=== PATIENT | male | born 1930 | race Caucasian/White ===

== ENCOUNTER 2016-10-01 10:57 | Inpatient (IN) ==
[2016-10-01] MEDS ORDERED: 0.9 % Sodium Chloride 1,000 ML IVC ONE (10:59)
--- NOTE | 2016-10-01 11:02 | Emergency Department Note ---
Disposition Clinical Impression: Acute retention of urine, Sepsis syndrome Urinary tract infection Qualifiers: Urinary tract infection type: acute cystitis Hematuria presence: without hematuria Qualified Code(s): N30.00 - Acute cystitis without hematuria Altered mental status Qualifiers: Altered mental status type: disorientation Qualified Code(s): R41.0 - Disorientation, unspecified Abdominal pain Qualifiers: Abdominal location: lower abdomen, unspecified Qualified Code(s): R10.30 - Lower abdominal pain, unspecified Disposition: Admitted As Inpatient Condition: Fair Referrals: Karlene Lino, SENIOR BI ARCHITECT [Primary Care Provider] - Forms: ED Satisfaction Letter General Adult HPI - General Chief complaint: ED Urogenital-Male Stated complaint: fever,vomiting, uti Time Seen by Provider: 10/01/16 10:59 Source: patient, family, EMS Mode of arrival: EMS Limitations: altered mental status Nursing Notes Reviewed: Yes Vital Signs Reviewed: Yes - History of Present Illness HPI Narrative: Patient has reportedly had about a week of "peeing green". He did see his urologist in [place] on Monday that Karlene Lino on . He was just started on Macrodantin for a UTI. Patient is able to indicate that he has been "feeling bad" for 2-3 days. This morning he has had some nausea and vomiting this productive of yellow bile. He denies abdominal pain this family reported that he had some mid abdominal discomfort. He has not been having diarrhea or bloody or black stools. He denies chest pain or shortness of breath. He denied other systemic complaints. He ultimately has refused to answer any further questions. His family reports that he had the urinary symptoms and the physician appointments. They also state that he had complained of having chills and shakes all night. They noted that he seemed to be a little confused at this morning. His daughter called the squad to have him brought in for evaluation. Onset (ago): day(s) Location: abdomen Radiation: non-radiation Pain Severity: mild, moderate Consistency: intermittent Improves with: nothing Worsens with: nothing Associated symptoms: Reports: confusion, fever/chills, loss of appetite, malaise , nausea/vomiting, weakness. Denies: chest pain, cough, diaphoresis, headaches , rash, seizure, shortness of breath, syncope - Related Data Home Medications Medication Instructions Recorded Confirmed Glimepiride [Amaryl] 2 mg PO DAILY 10/16/15 10/01/16 Leuprolide Acetate [Lupron Depot] 3.75 mg IM Q6M 10/16/15 10/01/16 Metoprolol XL (24 HR) Succ [Toprol 25 mg PO DAILY 10/16/15 10/01/16 Xl] Multivit-Min/FA/Lycopen/Lutein 1 each PO DAILY 10/16/15 10/01/16 [Centrum Silver Tablet] Olmesartan Medoxomil [Benicar] 20 mg PO DAILY 10/16/15 10/01/16 Solifenacin Succinate [Vesicare] 10 mg PO DAILY 10/16/15 10/01/16 Venlafaxine HCl [Effexor Xr] 75 mg PO DAILY 10/16/15 10/01/16 Abiraterone Acetate [Zytiga] 1,000 mg PO DAILY 01/30/16 10/01/16 predniSONE [Prednisone] 5 mg PO BID 01/30/16 10/01/16 Calcium Carbonate [Calcium] 500 mg PO BID 02/15/16 10/01/16 Denosumab [Prolia (For Outpatient 1 10/01/16 Infusion)] Previous Rx's Medication Instructions Recorded Apixaban [Eliquis] 5 mg PO BID #60 tablet 02/01/16 Cephalexin [Keflex] 500 mg PO TID #30 capsule 08/30/16 Phenazopyridine HCl [Pyridium] 200 mg PO TIDAC #6 tab 08/30/16 Allergies Allergy/AdvReac Type Severity Reaction Status Date / Time Sulfa (Sulfonamide Allergy See Verified 10/01/16 10:59 Antibiotics) Comments tamsulosin [From Flomax] AdvReac See Verified 10/01/16 10:59 Comments All systems ED: reviewed and negative except as stated. Past Medical History - Past Medical History Attestation: Yes The following information was validated with the patient. Source: patient, old records reviewed, obtained from family, nursing notes reviewed Medical history: Reports: other (BPH, Prostate cancer) Surgical history: Reports: cataract, hip replacement (Right), orthopedic, other Psychiatric history: Reports: anxiety, depression - Social History Smoking Status: Never smoker Smokeless Tobacco Status: No Alcohol use: Reports: none Drug use: Reports: none Physical Exam - General Limitations: altered mental status, age General appearance: in no apparent distress - Head Head exam: atraumatic, normocephalic, normal inspection - Eye Eye exam: Present: normal appearance, PERRL, EOMI. Absent: scleral icterus, conjunctival injection - ENT ENT exam: normal exam, normal oropharynx, mucous membranes moist - Neck Neck exam: Present: normal inspection, full ROM, trachea midline. Absent: meningismus, lymphadenopathy - Chest Chest inspection: Present: normal inspection, symmetric chest wall rise. Absent : tenderness - Respiratory Respiratory exam: Present: normal lung sounds bilaterally. Absent: respiratory distress, wheezes, prolonged expiratory phase - Cardiovascular Cardiovascular exam: Present: regular rate, normal rhythm, normal heart sounds - Abdominal Exam Abdominal exam: Present: soft, tenderness, diminished bowel sounds. Absent: distention, guarding, rebound, rigidity Abdominal tenderness: Present: RLQ, LLQ, suprapubic, mild - Extremities Exam Extremities exam: Present: normal inspection, full ROM, normal capillary refill. Absent: tenderness, pedal edema - Expanded Lower Extremity Exam Neurovascular/Tendon exam: Present: normal capillary refill. Absent: motor deficit, sensory deficit, tendon deficit Gait: not tested/not observed - Neurological Exam Neurological exam: Present: alert. Absent: oriented X3, motor sensory deficit - Psychiatric Psychiatric exam: Present: flat affect, other (Passive-aggressive) - Skin Skin exam: Present: warm, dry, intact, normal color Course Course Narrative: 1200: With the return of lab and imaging, care has been discussed with the family. Given the bladder distention of Sorto catheter has been placed with [address] Arce has been contacted with the ongoing care of this patient inpatient. IV fluids have been continued and ciprofloxacin has been ordered IV. Vital Signs Temperature 100.7 F H 10/01/16 10:59 Pulse Rate 96 10/01/16 10:59 Respiratory Rate 29 10/01/16 10:59 Blood Pressure 160/68 10/01/16 10:59 O2 Sat by Pulse Oximetry 92 10/01/16 10:59 Temperature 98.1 F 10/01/16 12:46 Pulse Rate 79 10/01/16 12:46 Respiratory Rate 21 10/01/16 12:46 Blood Pressure 140/55 10/01/16 12:46 O2 Sat by Pulse Oximetry 98 10/01/16 12:46 Oxygen Delivery Oxygen Delivery Nasal Cannula Medical Decision Making - Medical Records Medical records reviewed: Yes I reviewed the patient's medical records. - Lab Data Lab results reviewed: Yes I reviewed the patient's lab results. Result diagrams: 10/01/16 11:15 10/01/16 11:15 Lab Results 10/01/16 10/01/16 10/01/16 Range/Units 11:15 11:15 11:15 WBC 4.7 (4.3-11.1) K/mcL RBC 3.18 L (4.19-5.50) M/mcL Hgb 9.5 L (12.9-16.9) g/dL Hct 29.4 L (37.5-50.1) % MCV 92.5 (83.0-100.0) fL MCH 29.9 (28.0-33.3) pg MCHC 32.3 (31.6-35.5) g/dL RDW 14.7 H (11.5-14.5) % Plt Count 146 (140-400) K/mcL MPV 10.0 (9.4-12.4) fL Immature Gran % 0.2 (0-4) % Seg Neutrophils % 89.5 % Lymphocytes % 9.3 % Monocytes % 0.6 % Eosinophils % 0.2 % Basophils % 0.2 % Neutrophils # 4.2 (1.6-8.9) K/mcL Lymphocytes # 0.4 L (0.6-4.6) K/mcL Monocytes # 0.0 (0.0-1.3) K/mcL Eosinophils # 0.0 (0.0-0.6) K/mcL Basophils # 0.0 (0.0-0.2) K/mcL PT 15.7 H (9.4-12.1) Seconds INR 1.4 APTT 27.6 (26.0-36.0) Seconds VBG Lactic Acid (0.5-2.2) mmol/L Sodium 143 (136-145) mEq/L Potassium 3.0 L (3.5-4.5) mEq/L Chloride 109 (98-109) mEq/L Carbon Dioxide 22 (19-29) mEq/L BUN 11 (8-26) mg/dL Creatinine 0.90 (0.72-1.25) mg/dL Est GFR ( Amer) > 60 (> 60) Est GFR (Non-Af Amer) > 60 (> 60) BUN/Creatinine Ratio 12 (6-26) Glucose 150 H (70-99) mg/dL Calculated Osmolality 298 (280-300) Calcium 8.1 L (8.6-10.8) mg/dL Phosphorus 1.3 L (2.3-4.7) mg/dL Magnesium 2.1 (1.6-2.6) mg/dL Total Bilirubin 0.7 (0.2-1.2) mg/dL Direct Bilirubin 0.3 (0.0-0.5) mg/dL Indirect Bilirubin 0.4 (0.0-1.2) mg/dL AST 13 (5-34) Units/L ALT 11 (0-55) Units/L Alkaline Phosphatase 57 (38-126) Units/L Troponin I (0-0.03) ng/mL Serum Total Protein 6.3 (6.0-8.3) g/dL Albumin 3.1 L (3.5-5.0) g/dL Globulin 3.2 (2.4-3.5) g/dL Albumin/Globulin Ratio 1.0 L (1.1-2.2) Urine Color (Yellow) Urine Clarity (Clear) Urine pH (5.0-8.0) pH Units Ur Specific [place] (1.010-1.025) Urine Protein (Neg-Trace) mg/dL Urine Glucose (UA) (Normal) mg/dL Urine Ketones (Negative) mg/dL Urine Blood (Negative) Urine Nitrite (Negative) Urine Bilirubin (Negative) Urine Urobilinogen (Normal) mg/dL Ur Leukocyte Esterase (Negative) Urine Microscopic RBC (0-3) per hpf Urine Microscopic WBC (0-3) per hpf Ur Squamous Epith Cells (None-Few) per lpf Urine Bacteria (None-Few) per hpf Ur Culture Indicated? (NO) 10/01/16 10/01/16 10/01/16 Range/Units 11:15 11:15 12:20 WBC (4.3-11.1) K/mcL RBC (4.19-5.50) M/mcL Hgb (12.9-16.9) g/dL Hct (37.5-50.1) % MCV (83.0-100.0) fL MCH (28.0-33.3) pg MCHC (31.6-35.5) g/dL RDW (11.5-14.5) % Plt Count (140-400) K/mcL MPV (9.4-12.4) fL Immature Gran % (0-4) % Seg Neutrophils % % Lymphocytes % % Monocytes % % Eosinophils % % Basophils % % Neutrophils # (1.6-8.9) K/mcL Lymphocytes # (0.6-4.6) K/mcL Monocytes # (0.0-1.3) K/mcL Eosinophils # (0.0-0.6) K/mcL Basophils # (0.0-0.2) K/mcL PT (9.4-12.1) Seconds INR APTT (26.0-36.0) Seconds VBG Lactic Acid 3.5 H (0.5-2.2) mmol/L Sodium (136-145) mEq/L Potassium (3.5-4.5) mEq/L Chloride (98-109) mEq/L Carbon Dioxide (19-29) mEq/L BUN (8-26) mg/dL Creatinine (0.72-1.25) mg/dL Est GFR ( Amer) (> 60) Est GFR (Non-Af Amer) (> 60) BUN/Creatinine Ratio (6-26) Glucose (70-99) mg/dL Calculated Osmolality (280-300) Calcium (8.6-10.8) mg/dL Phosphorus (2.3-4.7) mg/dL Magnesium (1.6-2.6) mg/dL Total Bilirubin (0.2-1.2) mg/dL Direct Bilirubin (0.0-0.5) mg/dL Indirect Bilirubin (0.0-1.2) mg/dL AST (5-34) Units/L ALT (0-55) Units/L Alkaline Phosphatase (38-126) Units/L Troponin I 0.03 (0-0.03) ng/mL Serum Total Protein (6.0-8.3) g/dL Albumin (3.5-5.0) g/dL Globulin (2.4-3.5) g/dL Albumin/Globulin Ratio (1.1-2.2) Urine Color Yellow (Yellow) Urine Clarity Slightly Cloudy A (Clear) Urine pH 7.0 (5.0-8.0) pH Units Ur Specific [place] 1.015 (1.010-1.025) Urine Protein Negative (Neg-Trace) mg/dL Urine Glucose (UA) Normal (Normal) mg/dL Urine Ketones Negative (Negative) mg/dL Urine Blood Trace-intact H (Negative) Urine Nitrite Negative (Negative) Urine Bilirubin Negative (Negative) Urine Urobilinogen Normal (Normal) mg/dL Ur Leukocyte Esterase Large H (Negative) Urine Microscopic RBC 3-5 H (0-3) per hpf Urine Microscopic WBC TNTC H (0-3) per hpf Ur Squamous Epith Cells None Seen (None-Few) per lpf Urine Bacteria Few (None-Few) per hpf Ur Culture Indicated? YES A (NO) - Radiology Data Radiology results reviewed: Yes I reviewed the patient's radiology results. CT head is performed. This is reviewed on bone and soft tissue windows. There is no evidence for acute intracranial bleed, shift, mass or edema. Mastoids and sinuses appear normal. There is no fracture evident. This is on my interpretation. CT is performed of the abdomen and pelvis without IV or oral contrast. This is unremarkable with exception of a distended bladder. This is on my interpretation. No other acute abnormality is seen. Impressions Abdomen/Pelvis CT 10/01/16 11:01 IMPRESSION: No acute abnormality in the abdomen or pelvis on the noncontrast CT. D/ / Tank Olivarez MD / Tank Olivarez MD Interpreting Provider: Tank Olivarez MD Head CT 10/01/16 11:01 IMPRESSION: No acute intracranial abnormality. Senescent changes with diffuse parenchymal volume loss and sequela of mild chronic microvascular ischemic changes. D/ / Dorene Jean MD / Dorene Jean MD Interpreting Provider: Dorene Jean MD - EKG Data EKG #1 EKG attestation: Yes I reviewed and interpreted this EKG. EKG shows normal: sinus rhythm, axis, intervals, ST-T waves [place]/QRS: RBBB Interpretation: no acute changes, nonspecific ST-T wave changes Critical Care Time Critical Care Time: Yes Total Critical Care Time: 45 Attestation: As this patient did present with signs and symptoms of potential life- threatening illness requiring my urgent intervention, total critical care time in this patient's care has been 45 minutes, not withstanding separately reportable procedures.
[2016-10-01 11:32] LABS: Basophils % 0.2 %; Eosinophils % 0.2 %; Hematocrit 29.4 % (37.5-50.1); Hemoglobin 9.5 g/dL (12.9-16.9); Immature Granulocytes % 0.2 % (0-4); Lymphocytes # 0.4 K/mcL (0.6-4.6); Lymphocytes % 9.3 %; Mean Corpuscular HGB Conc 32.3 g/dL (31.6-35.5); Mean Corpuscular Hemoglobin 29.9 pg (28.0-33.3); Mean Corpuscular Volume 92.5 fL (83.0-100.0); Monocytes % 0.6 %; Neutrophils # 4.2 K/mcL (1.6-8.9); Platelet Count 146 K/mcL (140-400); Red Blood Count 3.18 M/mcL (4.19-5.50); Red Cell Distribution Width 14.7 % (11.5-14.5); Segmented Neutrophils % 89.5 %
[2016-10-01 11:37] LABS: INR 1.4; Prothrombin Time 15.7 Seconds (9.4-12.1)
[2016-10-01 11:40] LABS: Activated Partial Thrombo Time 27.6 Seconds (26.0-36.0)
[2016-10-01 11:50] LABS: Alanine Aminotransferase 11 Units/L (0-55); Albumin 3.1 g/dL (3.5-5.0); Alkaline Phosphatase 57 Units/L (38-126); Aspartate Amino Transferase 13 Units/L (5-34); BUN/Creatinine Ratio 12 (6-26); Bilirubin,Direct 0.3 mg/dL (0.0-0.5); Bilirubin,Indirect 0.4 mg/dL (0.0-1.2); Bilirubin,Total 0.7 mg/dL (0.2-1.2); Blood Urea Nitrogen 11 mg/dL (8-26); Calcium 8.1 mg/dL (8.6-10.8); Carbon Dioxide 22 mEq/L (19-29); Chloride 109 mEq/L (98-109); Globulin 3.2 g/dL (2.4-3.5); Glucose 150 mg/dL (70-99); Magnesium 2.1 mg/dL (1.6-2.6); Osmolality,Calculated 298 (280-300); Phosphorous 1.3 mg/dL (2.3-4.7); Sodium 143 mEq/L (136-145); Total Protein 6.3 g/dL (6.0-8.3); eGFR For African Americans > 60 (> 60); eGFR For Non-African Americans > 60 (> 60)
[2016-10-01 12:32] LABS: Bilirubin,Urine Negative (Negative); Blood,Urine Trace-intact (Negative); Clarity,Urine Slightly Cloudy (Clear); Color,Urine Yellow (Yellow); Glucose,Urine (UA) Normal (Normal); Ketones,Urine Negative (Negative); Leukocyte Esterase,Urine Large (Negative); Nitrite,Urine Negative (Negative); Protein,Urine Negative (Neg-Trace); Specific Gravity,Urine 1.015 (1.010-1.025); Urobilinogen,Urine Normal (Normal)
[2016-10-01 12:37] LABS: Squamous Epithelial Cell,Urine None Seen per lpf (None-Few); WBC,Urine TNTC per hpf (0-3)
[2016-10-01 12:38] LABS: Bacteria,Urine Few per hpf (None-Few)
[2016-10-01] MEDS ORDERED: Ondansetron 4 MG/2 ML VIAL IVP ONE (13:43)
[2016-10-01] MEDS ORDERED: MOM Conc 10 ML UD.LIQ PO PRN (15:45)
[2016-10-01] MEDS ORDERED: Naloxone 0.4 MG/ML INJ IVP PRN (15:45)
[2016-10-01] MEDS ORDERED: 0.9 % Sodium Chloride 1,000 ML IVC SCH (15:45)
--- NOTE | 2016-10-01 18:49 | Internal Med History&Physical ---
Date of Encounter: 10/01/16 Time of Encounter: 18:15 Assessment and Plan (1) Urinary tract infection Current visit: Yes Status: Acute He was ordered Cipro through emergency room. I will add Rocephin with urine culture pending. Qualifiers: Urinary tract infection type: acute cystitis Hematuria presence: without hematuria Qualified Code(s): N30.00 - Acute cystitis without hematuria (2) Hypokalemia Current visit: Yes Status: Acute We will give supplemental potassium and recheck labs in a.m. (3) Hypophosphatemia Current visit: Yes Status: Acute We will give phosphorus replacement and recheck labs in a.m. (4) Anemia Current visit: Yes Status: Chronic Suspect multifactorial etiology including hormonal therapy for prostate cancer and use of Eliqus. We will check anemia testing in a.m. Qualifiers: Anemia type: unspecified type Qualified Code(s): D64.9 - Anemia, unspecified (5) Pulmonary embolus Current visit: No Status: Acute Continue Eliquis Qualifiers: Pulmonary embolism type: other Chronicity: acute Acute cor pulmonale presence: without acute cor pulmonale Qualified Code(s): I26.99 - Other pulmonary embolism without acute cor pulmonale (6) Diabetes mellitus Current visit: No Status: Chronic Hemoglobin A1c was 6.2% on 06/13/2016. We will recheck in a.m. Continue glimepiride and do Accu-Cheks with SSI. 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 Will hold [facility] Internal Medicine - H&P: HPI Chief complaint: Chills and vomiting Admitted From: Home Plans for Post Hospital Care: Home History of present illness: Mr. Nix is a 86 year old male who came to emergency room after experiencing chills and went to episodes of vomiting at home. He stated he did not feel well. He is evaluated emergency room and found to have evidence of UTI. He was admitted to [facility] floor for ongoing care needs. He is lethargic and unable to give additional history. His daughter supplies the history and states he was given Macrobid 09/29/2016 for UTI symptoms. No culture was obtained. His history is pertinent otherwise for prostate cancer which was diagnosed approximately 2009. He was treated medically with hormone therapy and PSA is being monitored by urologist in [place]. He has past history of BPH and underwent TUR. He was found to have urinary retention in emergency room and a catheter was placed. He has had a kidney stone in the remote past. Past Med Surg Social Fam HX - Past Medical History Medical history: cancer, other Psychiatric history: anxiety, depression - Past Surgical History Surgical History: cataract, hip replacement, orthopedic, other - Social History Smoking Status: Never smoker Smokeless Tobacco Status: No Alcohol use: none Drug use: none - Family History Father Living Status: Hx Family Cardiac Disorders: No Hx Family Respiratory Disorders: No Hx Family Cancer: Yes Hx Family GI Disorders: No Hx Family Endocrine Disorder: Yes Hx Family Neuromuscular Disorders: No Hx Family Neurologic Disorders: No Hx Family HEENT Disorders: No Hx Family Autoimmune Disorders: No Internal Medicine - H&P: Meds Glimepiride [Amaryl] 2 mg PO DAILY 10/16/15 [History] Leuprolide Acetate [Lupron Depot] 3.75 mg IM Q6M 10/16/15 [History] Metoprolol XL (24 HR) Succ [Toprol Xl] 25 mg PO DAILY 10/16/15 [History] Multivit-Min/FA/Lycopen/Lutein [Centrum Silver Tablet] 1 each PO DAILY 10/16/15 [History] Olmesartan Medoxomil [Benicar] 20 mg PO DAILY 10/16/15 [History] Solifenacin Succinate [Vesicare] 10 mg PO DAILY 10/16/15 [History] Venlafaxine HCl [Effexor Xr] 75 mg PO DAILY 10/16/15 [History] Abiraterone Acetate [Zytiga] 1,000 mg PO DAILY 01/30/16 [History] predniSONE [Prednisone] 5 mg PO BID 01/30/16 [History] Apixaban [Eliquis] 5 mg PO BID #60 tablet 02/01/16 [Rx] Calcium Carbonate [Calcium] 500 mg PO BID 02/15/16 [History] Cephalexin [Keflex] 500 mg PO TID #30 capsule 08/30/16 [Rx] Phenazopyridine HCl [Pyridium] 200 mg PO TIDAC #6 tab 08/30/16 [Rx] Denosumab [Prolia (For Outpatient Infusion)] 1 10/01/16 [History] Allergies Sulfa (Sulfonamide Antibiotics) Allergy (Verified 10/01/16 10:59) See Comments patient states "long time ago can't remember reaction" tamsulosin [From Flomax] Adverse Reaction (Verified 10/01/16 10:59) See Comments patient states "long time ago can't remember reaction" All Systems PM: A 10-system review of systems was performed and is negative for pertinent findings except as documented above in the HPI. Review of systems: Gen.: His weight has been stable for several months Cardiovascular: He has history of hypertension. He has had DVT/pulmonary embolism within the past year and is now on Eliquis. He has not had known RI or heart failure. Respiratory: He is a lifelong nonsmoker. He has been prescribed oxygen for nighttime use. The exact diagnosis is not known by the daughter. GI: He had pancreatitis in the past which was attributed to an offending medication (name unknown). He has not had recurrence. He has not had other disorders of his liver or gallbladder. : As per history of present illness Neurologic: There is no known large distribution strokes or seizures Endocrine: He is been diagnosed with DM 2 approximately 5 years. 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 He had anemia on blood work emergency room and on many previous test. His daughter was unaware of this. 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 - Constitutional Vitals: Temp Pulse Resp BP Pulse Ox 99.6 F 81 18 106/48 93 10/01/16 16:05 10/01/16 16:05 10/01/16 16:05 10/01/16 16:05 10/01/16 16:05 Exam: Gen.: He is a well-developed well-nourished male lying in bed who appears in no significant distress at present time. He is lethargic but does awaken and answer a few questions. HEENT: Head is atraumatic and normocephalic. Eyes: EOMI. There is no scleral icterus. Mouth: Mucosa is moist. Neck: There is no thyromegaly or adenopathy noted. Heart: Regular without murmurs gallops or ectopics Lungs: No wheezes or crackles are heard. Abdomen: Soft and nontender. No masses or guarding are noted. Extremities: He has mild DJD changes of his hands. There is no cyanosis edema or clubbing noted. Dorsalis pedis and posterior tibial pulses are trace palpable. His feet are warm to touch. Neurologic: Mental status: He is lethargic. He awakens and attempts to answer a few questions but has difficulty speaking complete sentences. Cranial nerves : Smile is symmetric. Forehead wrinkles bilaterally. Tongue protrudes midline. EOMI. Motor: There is no pronator drift. Cerebellar: Finger to nose is intact bilaterally. Skin: Warm and dry Internal Med - H&P Results - Labs CBC & Chem 7: 10/01/16 11:15 10/01/16 11:15
[2016-10-01] MEDS ORDERED: Ibuprofen 600 MG TABLET PO PRN (19:04)
[2016-10-01] MEDS: 0.45 % Sodium Chloride w/KCl 20 MEQ/1,000 ML MLS IVC SCH (20:48)
[2016-10-01] MEDS: Lactobacillus 1 EACH CAP.SPRINK PO SCH (21:01)
[2016-10-01] MEDS: APIXABAN 5 MG TABLET PO SCH (21:01)
[2016-10-01] MEDS: Acetaminophen 325 MG TABLET PO PRN (21:02)
[2016-10-02 05:53] LABS: Basophils % 0.4 %; Eosinophils % 0.7 %; Hemoglobin 8.3 g/dL (12.9-16.9); Immature Granulocytes % 0.4 % (0-4); Lymphocytes # 0.6 K/mcL (0.6-4.6); Lymphocytes % 10.7 %; Mean Corpuscular HGB Conc 30.7 g/dL (31.6-35.5); Mean Corpuscular Hemoglobin 29.9 pg (28.0-33.3); Mean Corpuscular Volume 97.1 fL (83.0-100.0); Mean Platelet Volume 10.6 fL (9.4-12.4); Monocytes # 0.3 K/mcL (0.0-1.3); Monocytes % 5.3 %; Neutrophils # 4.7 K/mcL (1.6-8.9); Platelet Count 137 K/mcL (140-400); Red Blood Count 2.78 M/mcL (4.19-5.50); Red Cell Distribution Width 15.4 % (11.5-14.5); Segmented Neutrophils % 82.5 %
[2016-10-02 09:08] LABS: Calcium 7.2 mg/dL (8.6-10.8); Potassium 3.7 mEq/L (3.5-4.5)
[2016-10-02] MEDS: 0.45 % Sodium Chloride w/KCl 20 MEQ/1,000 ML MLS IVC SCH ×2 (09:31→11:06)
[2016-10-02] MEDS: (Abiraterone Acetate [Zytiga] 1,000 MG) PO SCH (09:35)
[2016-10-02] MEDS: Venlafaxine XR (24 HR) 37.5 MG CAP.ER.24H PO SCH (09:35)
[2016-10-02] MEDS: *HR* Glimepiride 2 MG TABLET PO SCH (09:35)
[2016-10-02] MEDS: Metoprolol XL (24 HR) Succ 25 MG TAB.ER.24H PO SCH (09:35)
[2016-10-02] MEDS: Lactobacillus 1 EACH CAP.SPRINK PO SCH ×2 (09:35→20:10)
[2016-10-02] MEDS: Valsartan 160 MG TABLET PO SCH (09:43)
[2016-10-02] MEDS: APIXABAN 5 MG TABLET PO SCH ×2 (09:43→20:10)
--- NOTE | 2016-10-02 09:47 | Internal Med Progress Note ---
Date of Encounter: 10/02/16 Time of Encounter: 09:40 - Assessment and plan (1) Urinary tract infection Current Visit: Yes Status: Acute Assessment and plan: October 02. Urine culture report is pending. Continue empiric Rocephin and Cipro. Qualifiers: Urinary tract infection type: acute cystitis Hematuria presence: without hematuria Qualified Code(s): N30.00 - Acute cystitis without hematuria (2) Hypokalemia Current Visit: Yes Status: Acute Assessment and plan: October 02. Resolved. We will decrease IV fluids. (3) Hypophosphatemia Current Visit: Yes Status: Acute Assessment and plan: October 02. Repeat phosphorus level is pending. (4) Anemia Current Visit: Yes Status: Chronic Assessment and plan: October 02. Anemia testing is pending. Will recheck labs in a.m. Qualifiers: Anemia type: unspecified type Qualified Code(s): D64.9 - Anemia, unspecified (5) Pulmonary embolus Current Visit: No Status: Acute Assessment and plan: October 02. Continue Eliquis. Qualifiers: Pulmonary embolism type: other Chronicity: acute Acute cor pulmonale presence: without acute cor pulmonale Qualified Code(s): I26.99 - Other pulmonary embolism without acute cor pulmonale (6) Diabetes mellitus Current Visit: No Status: Chronic Assessment and plan: October 02. 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 Continue Sorto catheter and with holding Vesicare/Ditropan - Subjective Interval history: October 02. He has no new complaints and feels better. - Constitutional Vitals: Temp Pulse Resp BP Pulse Ox 97.3 F L 59 22 104/45 97 10/02/16 06:50 10/02/16 06:50 10/02/16 06:50 10/02/16 06:50 10/02/16 06:50 Exam: He is sitting in a chair at bedside eating breakfast. His catheter is draining reddish brown urine. He is alert and talkative and appropriate in conversation. I reviewed his medications and lab results. Internal Medicine: Result - Labs CBC & Chem 7: 10/02/16 05:00 10/02/16 05:00 Labs: Short CBC 10/02/16 Range/Units 05:00 WBC 5.7 (4.3-11.1) K/mcL Hgb 8.3 L (12.9-16.9) g/dL Hct 27.0 L (37.5-50.1) % Plt Count 137 L (140-400) K/mcL Neutrophils # 4.7 (1.6-8.9) K/mcL BMP 10/02/16 05:00 Sodium 142 Potassium 3.7 Chloride 109 Carbon Dioxide 24 BUN 14 Creatinine 1.39 H D Glucose 123 H Calcium 7.2 L - ABG Interpretation ABG results: PT/INR, D-dimer PT 15.7 Seconds (9.4-12.1) H 10/01/16 11:15 Consult Discharge Plan - Plan Referrals: Karlene Lino, NUCLEAR CHEMISTRY TECHNICIAN [Primary Care Provider] - 1 week
[2016-10-02] MEDS ORDERED: MOM Conc 10 ML UD.LIQ PO PRN (11:35)
[2016-10-02] MEDS: Ondansetron 4 MG/2 ML VIAL IVP PRN ×2 (14:03→17:06)
[2016-10-02 17:34] LABS: Hemoglobin A1C 6.3 %
[2016-10-02 18:15] LABS: Folate 14.9 ng/mL (7.0-31.4)
[2016-10-03] MEDS: 0.45 % Sodium Chloride w/KCl 20 MEQ/1,000 ML MLS IVC SCH (03:05)
[2016-10-03 05:34] LABS: Basophils % 0.1 %; Eosinophils # 0.1 K/mcL (0.0-0.6); Eosinophils % 0.8 %; Hematocrit 26.7 % (37.5-50.1); Hemoglobin 8.6 g/dL (12.9-16.9); Immature Granulocytes % 0.5 % (0-4); Lymphocytes # 1.4 K/mcL (0.6-4.6); Lymphocytes % 19.3 %; Mean Corpuscular HGB Conc 32.2 g/dL (31.6-35.5); Mean Platelet Volume 10.2 fL (9.4-12.4); Monocytes # 0.8 K/mcL (0.0-1.3); Monocytes % 10.2 %; Neutrophils # 5.1 K/mcL (1.6-8.9); Platelet Count 143 K/mcL (140-400); Red Blood Count 2.87 M/mcL (4.19-5.50); Red Cell Distribution Width 14.7 % (11.5-14.5); Segmented Neutrophils % 69.1 %
[2016-10-03 05:54] LABS: BUN/Creatinine Ratio 13 (6-26); Blood Urea Nitrogen 11 mg/dL (8-26); Calcium 7.6 mg/dL (8.6-10.8); Carbon Dioxide 21 mEq/L (19-29); Chloride 112 mEq/L (98-109); Glucose 152 mg/dL (70-99); Osmolality,Calculated 296 (280-300); Potassium 3.7 mEq/L (3.5-4.5); Sodium 142 mEq/L (136-145); eGFR For African Americans > 60 (> 60); eGFR For Non-African Americans > 60 (> 60)
[2016-10-03] MEDS: (Abiraterone Acetate [Zytiga] 1,000 MG) PO SCH (06:03)
--- NOTE | 2016-10-03 08:09 | Electrocardiograph Report ---
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
[2016-10-03] MEDS: *HR* Glimepiride 2 MG TABLET PO SCH (08:45)
[2016-10-03] MEDS: Venlafaxine XR (24 HR) 37.5 MG CAP.ER.24H PO SCH (08:45)
[2016-10-03] MEDS: Metoprolol XL (24 HR) Succ 25 MG TAB.ER.24H PO SCH (08:45)
[2016-10-03] MEDS: Valsartan 160 MG TABLET PO SCH (08:45)
[2016-10-03] MEDS: APIXABAN 5 MG TABLET PO SCH ×2 (08:45→22:34)
[2016-10-03] MEDS: Lactobacillus 1 EACH CAP.SPRINK PO SCH ×2 (08:45→22:34)
[2016-10-03] MEDS: Acetaminophen 325 MG TABLET PO PRN (08:51)
--- NOTE | 2016-10-03 09:55 | Internal Med Progress Note ---
Date of Encounter: 10/03/16 Time of Encounter: 09:40 - Assessment and plan (1) Urinary tract infection Current Visit: Yes Status: Acute Assessment and plan: October 02. Urine culture report is pending. Continue empiric Rocephin and Cipro. October 03. Urine culture was negative. We will discontinue antibiotics Qualifiers: Urinary tract infection type: acute cystitis Hematuria presence: without hematuria Qualified Code(s): N30.00 - Acute cystitis without hematuria (2) Hypokalemia Current Visit: Yes Status: Acute Assessment and plan: October 02. Resolved. We will decrease IV fluids. October 03. Remains resolved. We will discontinue IV fluids (3) Hypophosphatemia Current Visit: Yes Status: Acute Assessment and plan: October 02. Repeat phosphorus level is pending. October 03. We will repeat phosphorus level in a.m. (4) Anemia Current Visit: Yes Status: Chronic Assessment and plan: October 02. Anemia testing is pending. Will recheck labs in a.m. October 03. Anemia testing consistent with iron deficiency. We will give IV iron dextran. Qualifiers: Anemia type: unspecified type Qualified Code(s): D64.9 - Anemia, unspecified (5) Pulmonary embolus Current Visit: No Status: Acute Assessment and plan: October 02. Continue Eliquis. Qualifiers: Pulmonary embolism type: other Chronicity: acute Acute cor pulmonale presence: without acute cor pulmonale Qualified Code(s): I26.99 - Other pulmonary embolism without acute cor pulmonale (6) Diabetes mellitus Current Visit: No Status: Chronic Assessment and plan: October 02. Continue glimepiride and Accu-Cheks with SSI Qualifiers: Diabetes mellitus type: type 2 Diabetes mellitus complication status: without complication Diabetes mellitus fpc insulin use: without fpc use Qualified Code(s): E11.9 - Type 2 diabetes mellitus without complications (7) Acute retention of urine Current Visit: Yes Status: Acute Assessment and plan: October 02. Continue Sorto catheter and with holding Vesicare/Ditropan October 03. We will discontinue Sorto and continue to withhold Vesicare/Ditropan (8) Tongue burning sensation Current Visit: Yes Status: Acute Assessment and plan: October 03. Will order nystatin mouthwash - Subjective Interval history: October 02. He has no new complaints and feels better. October 03. He attempted to ambulate in his room last evening without assistance and had a fall. He sustained a small head contusion. He complains of some burning on his tongue. - Constitutional Vitals: Temp Pulse Resp BP Pulse Ox 98.2 F 72 16 171/69 97 10/03/16 06:39 10/03/16 08:06 10/03/16 08:06 10/03/16 08:06 10/03/16 06:39 Exam: He is sitting on the bedside commode. There is a small contusion of his scalp at the posterior midline area. His affect is bright and cheerful otherwise. He is appropriate in conversation. His tongue shows no visible lesions. Reviewed his medications and lab results. Internal Medicine: Result - Labs CBC & Chem 7: 10/03/16 05:28 10/03/16 05:28 Labs: Short CBC 10/03/16 Range/Units 05:28 WBC 7.5 (4.3-11.1) K/mcL Hgb 8.6 L (12.9-16.9) g/dL Hct 26.7 L (37.5-50.1) % Plt Count 143 (140-400) K/mcL Neutrophils # 5.1 (1.6-8.9) K/mcL BMP 10/03/16 05:28 Sodium 142 Potassium 3.7 Chloride 112 H Carbon Dioxide 21 BUN 11 Creatinine 0.88 Glucose 152 H Calcium 7.6 L - ABG Interpretation ABG results: PT/INR, D-dimer PT 15.7 Seconds (9.4-12.1) H 10/01/16 11:15 Consult Discharge Plan - Plan Referrals: Karlene Lino, [employer] [Primary Care Provider] - 1 week
[2016-10-03] MEDS ORDERED: IRON DEXTRAN COMPLEX IVPB ONE (11:00)
[2016-10-03] MEDS ORDERED: SODIUM CHLORIDE 0.9% IVPB ONE (11:00)
[2016-10-03] MEDS: Nystatin SUSP 5 ML UD.LIQ PO SCH ×4 (11:11→22:34)
[2016-10-04] MEDS ORDERED: (Abiraterone Acetate [Zytiga] 1,000 MG) PO SCH (06:00)
[2016-10-04 06:25] LABS: Basophils % 0.5 %; Eosinophils # 0.2 K/mcL (0.0-0.6); Eosinophils % 3.1 %; Hematocrit 28.7 % (37.5-50.1); Hemoglobin 9.3 g/dL (12.9-16.9); Immature Granulocytes % 0.5 % (0-4); Lymphocytes # 2.7 K/mcL (0.6-4.6); Lymphocytes % 35.3 %; Mean Corpuscular HGB Conc 32.4 g/dL (31.6-35.5); Mean Corpuscular Hemoglobin 30.1 pg (28.0-33.3); Mean Corpuscular Volume 92.9 fL (83.0-100.0); Mean Platelet Volume 11.6 fL (9.4-12.4); Monocytes # 0.6 K/mcL (0.0-1.3); Monocytes % 7.3 %; Neutrophils # 4.1 K/mcL (1.6-8.9); Platelet Count 184 K/mcL (140-400); Red Blood Count 3.09 M/mcL (4.19-5.50); Red Cell Distribution Width 14.6 % (11.5-14.5); Segmented Neutrophils % 53.3 %
[2016-10-04 06:41] LABS: BUN/Creatinine Ratio 8 (6-26); Blood Urea Nitrogen 6 mg/dL (8-26); Calcium 8.3 mg/dL (8.6-10.8); Carbon Dioxide 20 mEq/L (19-29); Chloride 114 mEq/L (98-109); Glucose 119 mg/dL (70-99); Osmolality,Calculated 299 (280-300); Phosphorous 1.3 mg/dL (2.3-4.7); Potassium 3.4 mEq/L (3.5-4.5); Sodium 145 mEq/L (136-145); eGFR For African Americans > 60 (> 60); eGFR For Non-African Americans > 60 (> 60)
[2016-10-04] MEDS: *HR* Glimepiride 2 MG TABLET PO SCH (08:39)
[2016-10-04] MEDS: Nystatin SUSP 5 ML UD.LIQ PO SCH (08:39)
[2016-10-04] MEDS: Metoprolol XL (24 HR) Succ 25 MG TAB.ER.24H PO SCH (08:39)
[2016-10-04] MEDS: Lactobacillus 1 EACH CAP.SPRINK PO SCH (08:39)
[2016-10-04] MEDS: Venlafaxine XR (24 HR) 37.5 MG CAP.ER.24H PO SCH (08:39)
[2016-10-04] MEDS: Valsartan 160 MG TABLET PO SCH (08:41)
[2016-10-04] MEDS: APIXABAN 5 MG TABLET PO SCH (08:41)
[2016-10-04 10:57] VITALS: BP 112/53
--- NOTE | 2016-10-04 11:28 | Discharge Summary ---
Date of Encounter: 10/04/16 Time of Encounter: 11:10 - Discharge Diagnosis (1) Urinary tract infection Priority: Primary Status: Resolved Qualifiers: Urinary tract infection type: acute cystitis Hematuria presence: without hematuria Qualified Code(s): N30.00 - Acute cystitis without hematuria (2) Hypokalemia Priority: Secondary Status: Acute (3) Hypophosphatemia Priority: Secondary Status: Acute (4) Anemia Priority: Secondary Status: Chronic Qualifiers: Anemia type: iron deficiency Iron deficiency anemia type: unspecified iron deficiency Qualified Code(s): D50.9 - Iron deficiency anemia, unspecified (5) Pulmonary embolus Priority: Secondary Status: Acute Qualifiers: Pulmonary embolism type: other Chronicity: acute Acute cor pulmonale presence: without acute cor pulmonale Qualified Code(s): I26.99 - Other pulmonary embolism without acute cor pulmonale (6) Diabetes mellitus Priority: Secondary Status: Chronic Qualifiers: Diabetes mellitus type: type 2 Diabetes mellitus complication status: without complication 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 Qualified Code(s): E11.9 - Type 2 diabetes mellitus without complications (7) Acute retention of urine Priority: Secondary Status: Acute (8) Tongue burning sensation Priority: Secondary Status: Acute - Discharge Medications Prescriptions: Nystatin [Nystatin Suspension] 500,000 units PO QID #60 ml Phos-NaK [Neutra-Phos] 1 each PO BID #14 powd.pack Home Medications: Glimepiride [Amaryl] 2 mg PO DAILY 10/16/15 [History] Leuprolide Acetate [Lupron Depot] 3.75 mg IM Q6M 10/16/15 [History] Metoprolol XL (24 HR) Succ [Toprol Xl] 25 mg PO DAILY 10/16/15 [History] Multivit-Min/FA/Lycopen/Lutein [Centrum Silver Tablet] 1 each PO DAILY 10/16/15 [History] Olmesartan Medoxomil [Benicar] 20 mg PO DAILY 10/16/15 [History] Venlafaxine HCl [Effexor Xr] 75 mg PO DAILY 10/16/15 [History] Abiraterone Acetate [Zytiga] 1,000 mg PO DAILY 01/30/16 [History] predniSONE [Prednisone] 5 mg PO BID 01/30/16 [History] Apixaban [Eliquis] 5 mg PO BID #60 tablet 02/01/16 [Rx] Calcium Carbonate [Calcium] 500 mg PO BID 02/15/16 [History] Phenazopyridine HCl [Pyridium] 200 mg PO TIDAC #6 tab 08/30/16 [Rx] Denosumab [Prolia (For Outpatient Infusion)] 1 10/01/16 [History] Nystatin [Nystatin Suspension] 500,000 units PO QID #60 ml 10/04/16 [Rx] Phos-NaK [Neutra-Phos] 1 each PO BID #14 powd.pack 10/04/16 [Rx] Potassium Chloride 20 meq PO BIDWM #28 tab.er.prt 10/04/16 [Rx] Allergies/Adverse Reactions: Allergies Sulfa (Sulfonamide Antibiotics) Allergy (Verified 10/01/16 10:59) See Comments patient states "long time ago can't remember reaction" tamsulosin [From Flomax] Adverse Reaction (Verified 10/01/16 10:59) See Comments patient states "long time ago can't remember reaction" Date of admission: 10/01/16 14:30 Primary care physician: Karlene Lino CNP Consults: 10/01/16 17:40 Consult to Auto Detailer [CONS] Routine Reason for SW Consult: Discharge Planning - Patient Status Disposition: Home Health Service Condition: Fair Functional capacity at discharge: uses cane/walker Overall status at discharge: patient is progressing back to baseline - Discharge Instructions Follow Up With: Karlene Lino CNP [Primary Care Provider] - 1 week - Diet and Activity Activity: ambulate only with your walker, resume usual activities as tolerated Diet: advance to your usual diet Hospital course: Mr. Nix is a 86 year old male who came to emergency room after experiencing chills and 2 episodes of vomiting at home. He stated he did not feel well. He was evaluated in emergency room and felt to have evidence of UTI. He was admitted to [facility] floor for ongoing care needs. Initial orders were written by the emergency room physician. I saw him on October 01 and performed the history and physical. He was ordered IV Cipro through emergency room. I added Rocephin until urine culture results returned. The urine culture showed no growth. His WBC remained normal and there was resolution of the left shift. No further antibiotics will be given at discharge. Supplemental potassium was given for hypokalemia. Potassium juliana to 3.7 during hospitalization but declined to 3.4 the day of discharge. He will continue supplemental potassium upon discharge at a dose of 20 mEq twice a day. He was given a one-week supply on prescription which will need to be renewed by his PCP if needed. Phosphorus level returned low at 1.3. He was given a dose of Neutra-Phos but the level was still 1.3 on the day of discharge. He will continue with a 1 week prescription of Neutra-Phos 1 packet twice a day at discharge and his PCP can follow-up. Anemia testing showed iron 13, transferrin saturation 4%, transferrin 219, ferritin 40, B12 292, and folate 14.9. He was given an infusion of iron dextran and hemoglobin improved to 9.3 on the day of discharge from 8.3 on 07/2016. He sustained a fall the evening of October 02 as he attempted to get out of bed unassisted. He sustained a contusion/abrasion to his posterior scalp but there was no other significant injury. He was cautioned against attempting to walk without the use of a walker. A catheter was inserted in emergency room for evidence of urinary retention. Vesicare was discontinued. He had significant urinary output. His creatinine decreased to 0.73 on the day of discharge with estimated GFR greater than 60. He will remain off Vesicare at discharge and his PCP can do postvoid residual studies to see if he has OAB or evidence of urinary retention. On October 04 he was stable for discharge home. He will follow with his PCP Dr. Ceron/Karlene Lino CNP within 1 week. - Time Spent with Patient Total time spent providing and/or coordinating discharge services: - Constitutional Vitals: Temp Pulse Resp BP Pulse Ox 98.7 F 61 16 112/53 94 10/04/16 10:54 10/04/16 10:54 10/04/16 10:54 10/04/16 10:54 10/04/16 10:54
--- NOTE | 2016-10-04 12:27 | Physician Discharge Referral ---
Home Health/Hosp Referral Info Transfer to: Home Health Attending Provider: Claude Provider in Charge Post Discharge: PCP (Jie) - Diagnosis (1) Urinary tract infection Priority: Primary Status: Resolved (2) Hypokalemia Priority: Secondary Status: Acute (3) Hypophosphatemia Priority: Secondary Status: Acute (4) Anemia Priority: Secondary Status: Chronic (5) Pulmonary embolus Priority: Secondary Status: Acute (6) Diabetes mellitus Priority: Secondary Status: Chronic (7) Acute retention of urine Priority: Secondary Status: Acute (8) Tongue burning sensation Priority: Secondary Status: Acute - Respiratory Orders Oxygen / L per min (2 L/m by nasal cannula when necessary to keep sat greater than 90%) Smoking Cessation: Smoking cessation has been advised. For more information, call the [place] Tobacco Quit Line at 9-989-HQYP-NOW. - Diet/Nutrition Diet/Nutrition Orders: No Concentrated Sweets - Activity Activity Orders: Walker - Services Needed Following services are medically necessary services: Nursing, Home Health Aide, Physical Therapy, Occupational Therapy - Transfer Medications Prescriptions: Nystatin [Nystatin Suspension] 500,000 units PO QID #60 ml Phos-NaK [Neutra-Phos] 1 each PO BID #14 powd.pack Home Medications: Glimepiride [Amaryl] 2 mg PO DAILY 10/16/15 [History] Leuprolide Acetate [Lupron Depot] 3.75 mg IM Q6M 10/16/15 [History] Metoprolol XL (24 HR) Succ [Toprol Xl] 25 mg PO DAILY 10/16/15 [History] Multivit-Min/FA/Lycopen/Lutein [Centrum Silver Tablet] 1 each PO DAILY 10/16/15 [History] Olmesartan Medoxomil [Benicar] 20 mg PO DAILY 10/16/15 [History] Venlafaxine HCl [Effexor Xr] 75 mg PO DAILY 10/16/15 [History] Abiraterone Acetate [Zytiga] 1,000 mg PO DAILY 01/30/16 [History] predniSONE [Prednisone] 5 mg PO BID 01/30/16 [History] Apixaban [Eliquis] 5 mg PO BID #60 tablet 02/01/16 [Rx] Calcium Carbonate [Calcium] 500 mg PO BID 02/15/16 [History] Phenazopyridine HCl [Pyridium] 200 mg PO TIDAC #6 tab 08/30/16 [Rx] Denosumab [Prolia (For Outpatient Infusion)] 1 10/01/16 [History] Nystatin [Nystatin Suspension] 500,000 units PO QID #60 ml 10/04/16 [Rx] Phos-NaK [Neutra-Phos] 1 each PO BID #14 powd.pack 10/04/16 [Rx] Potassium Chloride 20 meq PO BIDWM #28 tab.er.prt 10/04/16 [Rx] Allergies/Adverse Reactions: Allergies Sulfa (Sulfonamide Antibiotics) Allergy (Verified 10/01/16 10:59) See Comments patient states "long time ago can't remember reaction" tamsulosin [From Flomax] Adverse Reaction (Verified 10/01/16 10:59) See Comments patient states "long time ago can't remember reaction" Certification: Further, I certify that my clinical findings support that this patient is homebound (i.e. absences from home require considerable and taxing effort and are for medical reasons or religion services or infrequently or short duration when for other reasons) because: Homebound Reason: Leaving home requires considerable and taxing effort due to condition (Weakness, electrolyte imbalance) Attestation: My signature below is to certify that this patient is under my care and that I, or nurse practitioner, or a physician's medical lab assistant working with me, has a face-to -face encounter with this patient.
== END 2016-10-04 13:05 | disposition home health service (06) | DRG 690 ==
LOC: EMEROOPIK 10:57 → INPPIK 10:57
PROVIDERS: ADMIT Internal Medicine; ATTEND Internal Medicine

== ENCOUNTER 2016-12-06 11:23 | Inpatient (IN) ==
[2016-12-06] MEDS ORDERED: *HR* Morphine 2 MG/ML SYRINGE IVP ONE (11:43)
[2016-12-06] MEDS ORDERED: Ondansetron 4 MG/2 ML VIAL IVP ONE (11:43)
--- NOTE | 2016-12-06 11:46 | Emergency Department Note ---
Disposition Clinical Impression: Urinary tract infection Qualifiers: Urinary tract infection type: acute cystitis Hematuria presence: without hematuria Qualified Code(s): N30.00 - Acute cystitis without hematuria Disposition: Admitted As Inpatient Condition: Fair Referrals: Ernesto Ceron MD [Primary Care Provider] - Forms: Work/School Release, ED Satisfaction Letter Time of Disposition: 16:52 Abdominal Pain HPI - General Chief Complaint: ED Abdominal Pain Stated Complaint: generalized abdominal pain N/V Time Seen by Provider: 12/06/16 11:40 Source: EMS Mode of arrival: EMS Limitations: no limitations Nursing Notes Reviewed: Yes Vital Signs Reviewed: Yes - History of Present Illness HPI Narrative: 86-year-old white male who presents complaining of abdominal discomfort for 2 days. It started yesterday. Been constant, intermittently better and worse. He states it seems to be worse when he lays on his right side. He has had nausea but no vomiting. He denies fever or chills. He states his bowel movements and been regular. He denies symptoms, no frequency or urgency. He denies back pain. Pt Subjective Complaint: abdominal pain Onset (ago): day(s) (2) Consistency: constant Location: RUQ Pain Scale: 3 Quality: aching Radiation: none Migration to: no migration Improves with: nothing Worsens with: movement Associated symptoms: Reports: nausea. Denies: vomiting, diarrhea, fever, constipation Treatments prior to arrival: none - Related Data Home Medications Medication Instructions Recorded Confirmed Glimepiride [Amaryl] 2 mg PO DAILY 10/16/15 12/06/16 Leuprolide Acetate [Lupron Depot] 3.75 mg IM Q6M 10/16/15 12/06/16 Metoprolol XL (24 HR) Succ [Toprol 25 mg PO DAILY 10/16/15 12/06/16 Xl] Multivit-Min/FA/Lycopen/Lutein 1 each PO DAILY 10/16/15 12/06/16 [Centrum Silver Tablet] Olmesartan Medoxomil [Benicar] 20 mg PO DAILY 10/16/15 12/06/16 Venlafaxine HCl [Effexor Xr] 75 mg PO DAILY 10/16/15 12/06/16 Abiraterone Acetate [Zytiga] 1,000 mg PO DAILY 01/30/16 10/01/16 predniSONE [Prednisone] 5 mg PO BID 01/30/16 12/06/16 Calcium Carbonate [Calcium] 500 mg PO BID 02/15/16 10/01/16 Denosumab [Prolia (For Outpatient 1 IM 10/01/16 Infusion)] LORazepam [Ativan] 0.5 mg PO HS 12/06/16 12/06/16 Solifenacin Succinate [Vesicare] 10 mg PO HS 12/06/16 12/06/16 Previous Rx's Medication Instructions Recorded Apixaban [Eliquis] 5 mg PO BID #60 tablet 02/01/16 Allergies Allergy/AdvReac Type Severity Reaction Status Date / Time Sulfa (Sulfonamide Allergy See Verified 10/01/16 10:59 Antibiotics) Comments tamsulosin [From Flomax] AdvReac See Verified 10/01/16 10:59 Comments All systems ED: reviewed and negative except as stated. Constitutional: Denies: fever, chills ENT ED: Denies: ear pain, throat pain Cardiovascular: Denies: chest pain Respiratory: Denies: cough, dyspnea Gastrointestinal: Reports: abdominal pain, nausea. Denies: vomiting, diarrhea, constipation Genitourinary: Denies: urgency, dysuria, frequency Musculoskeletal: Denies: back pain Neurological: Denies: headache, weakness Abdominal Pain PMH - Past Medical History Medical history: Reports: cancer, other Male Surgical History: Reports: orthopedic, other Psychiatric history: Reports: anxiety, depression - Social History Smoking status: Never smoker Alcohol use: Reports: none Drug use: Reports: none Physical Exam - General Limitations: no limitations General appearance: alert, in no apparent distress - Head Head exam: atraumatic, normocephalic - Eye Eye exam: Present: PERRL, EOMI. Absent: scleral icterus, conjunctival injection - ENT ENT exam: normal oropharynx, mucous membranes moist - Neck Neck exam: Present: normal inspection, full ROM, trachea midline. Absent: tenderness, meningismus, lymphadenopathy - Respiratory Respiratory exam: Present: normal lung sounds bilaterally. Absent: respiratory distress, wheezes - Cardiovascular Cardiovascular exam: Present: regular rate, normal rhythm, normal heart sounds - Abdominal Exam Abdominal exam: Present: soft, tenderness, guarding, normal bowel sounds. Absent: distention, rebound, organomegaly, mass Abdominal tenderness: Present: RUQ - Male exam: Present: normal inspection. Absent: circumcised, inguinal hernia, inguinal lymphadenopathy - Extremities Exam Extremities exam: Present: normal inspection, normal capillary refill. Absent: pedal edema - Back Exam Back exam: Absent: CVA tenderness (R), CVA tenderness (L) - Neurological Exam Neurological exam: Present: alert, oriented X3. Absent: motor sensory deficit - Psychiatric Psychiatric exam: Present: normal affect, normal mood - Skin Skin exam: Present: warm, dry, intact, normal color Course - Reevaluation(s) Reevaluation #1: Discussed with Dr. Arce. Patient will be admitted. I discussed with his daughter. She is agreeable with the treatment plan. Time: 16:55 Vital Signs Temperature 103.1 F H 12/06/16 11:25 Pulse Rate 78 12/06/16 11:25 Respiratory Rate 16 12/06/16 11:25 Blood Pressure 117/50 12/06/16 11:25 O2 Sat by Pulse Oximetry 94 12/06/16 11:25 Temperature 100.4 F H 12/06/16 15:47 Pulse Rate 80 12/06/16 15:47 Respiratory Rate 16 12/06/16 15:47 Blood Pressure 125/52 12/06/16 15:47 O2 Sat by Pulse Oximetry 97 12/06/16 15:47 Oxygen Delivery Oxygen Delivery Nasal Cannula Abdominal Pain - Lab Data Lab results reviewed: Yes I reviewed the patient's lab results. Result diagrams: 12/06/16 12:02 12/06/16 12:02 Lab Results 12/06/16 12/06/16 12/06/16 Range/Units 12:02 12:02 12:02 WBC 5.0 (4.3-11.1) K/mcL RBC 3.60 L (4.19-5.50) M/mcL Hgb 11.5 L (12.9-16.9) g/dL Hct 34.3 L (37.5-50.1) % MCV 95.3 (83.0-100.0) fL MCH 31.9 (28.0-33.3) pg MCHC 33.5 (31.6-35.5) g/dL RDW 15.9 H (11.5-14.5) % Plt Count 139 L (140-400) K/mcL MPV 10.4 (9.4-12.4) fL Immature Gran % 0.2 (0-4) % Seg Neutrophils % 87.2 % Lymphocytes % 11.0 % Monocytes % 1.2 % Eosinophils % 0.2 % Basophils % 0.2 % Neutrophils # 4.4 (1.6-8.9) K/mcL Lymphocytes # 0.6 (0.6-4.6) K/mcL Monocytes # 0.1 (0.0-1.3) K/mcL Eosinophils # 0.0 (0.0-0.6) K/mcL Basophils # 0.0 (0.0-0.2) K/mcL VBG Lactic Acid 3.4 H (0.5-2.2) mmol/L Sodium 144 (136-145) mEq/L Potassium 3.7 (3.5-4.5) mEq/L Chloride 109 (98-109) mEq/L Carbon Dioxide 22 (19-29) mEq/L BUN 18 (8-26) mg/dL Creatinine 1.11 (0.72-1.25) mg/dL Est GFR ( Amer) > 60 (> 60) Est GFR (Non-Af Amer) > 60 (> 60) BUN/Creatinine Ratio 16 (6-26) Glucose 137 H (70-99) mg/dL Calculated Osmolality 302 H (280-300) Calcium 8.7 (8.6-10.8) mg/dL Total Bilirubin 0.7 (0.2-1.2) mg/dL AST 15 (5-34) Units/L ALT 13 (0-55) Units/L Alkaline Phosphatase 66 (38-126) Units/L Serum Total Protein 6.2 (6.0-8.3) g/dL Albumin 3.3 L (3.5-5.0) g/dL Globulin 2.9 (2.4-3.5) g/dL Albumin/Globulin Ratio 1.1 (1.1-2.2) Lipase 4 L (8-78) Units/L Urine Color (Yellow) Urine Clarity (Clear) Urine pH (5.0-8.0) pH Units Ur Specific [place] (1.010-1.025) Urine Protein (Neg-Trace) mg/dL Urine Glucose (UA) (Normal) mg/dL Urine Ketones (Negative) mg/dL Urine Blood (Negative) Urine Nitrite (Negative) Urine Bilirubin (Negative) Urine Urobilinogen (Normal) mg/dL Ur Leukocyte Esterase (Negative) Urine Microscopic RBC (0-3) per hpf Urine Microscopic WBC (0-3) per hpf Ur Squamous Epith Cells (None-Few) per lpf Ur Culture Indicated? (NO) 12/06/16 Range/Units 16:09 WBC (4.3-11.1) K/mcL RBC (4.19-5.50) M/mcL Hgb (12.9-16.9) g/dL Hct (37.5-50.1) % MCV (83.0-100.0) fL MCH (28.0-33.3) pg MCHC (31.6-35.5) g/dL RDW (11.5-14.5) % Plt Count (140-400) K/mcL MPV (9.4-12.4) fL Immature Gran % (0-4) % Seg Neutrophils % % Lymphocytes % % Monocytes % % Eosinophils % % Basophils % % Neutrophils # (1.6-8.9) K/mcL Lymphocytes # (0.6-4.6) K/mcL Monocytes # (0.0-1.3) K/mcL Eosinophils # (0.0-0.6) K/mcL Basophils # (0.0-0.2) K/mcL VBG Lactic Acid (0.5-2.2) mmol/L Sodium (136-145) mEq/L Potassium (3.5-4.5) mEq/L Chloride (98-109) mEq/L Carbon Dioxide (19-29) mEq/L BUN (8-26) mg/dL Creatinine (0.72-1.25) mg/dL Est GFR ( Amer) (> 60) Est GFR (Non-Af Amer) (> 60) BUN/Creatinine Ratio (6-26) Glucose (70-99) mg/dL Calculated Osmolality (280-300) Calcium (8.6-10.8) mg/dL Total Bilirubin (0.2-1.2) mg/dL AST (5-34) Units/L ALT (0-55) Units/L Alkaline Phosphatase (38-126) Units/L Serum Total Protein (6.0-8.3) g/dL Albumin (3.5-5.0) g/dL Globulin (2.4-3.5) g/dL Albumin/Globulin Ratio (1.1-2.2) Lipase (8-78) Units/L Urine Color Yellow (Yellow) Urine Clarity Cloudy A (Clear) Urine pH 7.0 (5.0-8.0) pH Units Ur Specific [place] 1.020 (1.010-1.025) Urine Protein >=300 H (Neg-Trace) mg/dL Urine Glucose (UA) Normal (Normal) mg/dL Urine Ketones Negative (Negative) mg/dL Urine Blood Large H (Negative) Urine Nitrite Negative (Negative) Urine Bilirubin Negative (Negative) Urine Urobilinogen Normal (Normal) mg/dL Ur Leukocyte Esterase Large H (Negative) Urine Microscopic RBC 15-30 H (0-3) per hpf Urine Microscopic WBC TNTC H (0-3) per hpf Ur Squamous Epith Cells Few (None-Few) per lpf Ur Culture Indicated? YES A (NO) - Radiology Data Radiology results reviewed: Yes I reviewed the patient's radiology results. Impressions Abdomen/Pelvis CT 12/06/16 11:43 IMPRESSION: Prostatic enlargement, with wall thickening of the urinary bladder compatible with chronic bladder outlet obstruction. The possibility of cystitis should be excluded clinically. No other significant abnormality is demonstrated within the abdomen and pelvis. D/ / Lopez Ambriz MD / Lopez Ambriz MD Interpreting Provider: Lopez Ambriz MD Chest X-Ray 12/06/16 11:52 IMPRESSION: Low lung volumes with bibasilar atelectasis. No findings of pneumonia D/ / Lopez Ambriz MD / Lopez Ambriz MD Interpreting Provider: Lopez Ambriz MD - EKG Data EKG attestation: Yes I reviewed and interpreted this EKG. EKG results narrative: Normal sinus rhythm, rate of 80, right bundle branch block, nonspecific ST-T changes. Rhythm strip shows a sinus rhythm with rate of 80, LA interval 180 ms , QRS 152 ms with no other ectopy as interpreted by me. Unchanged compared to .
[2016-12-06 12:10] LABS: Basophils % 0.2 %; Eosinophils % 0.2 %; Hematocrit 34.3 % (37.5-50.1); Hemoglobin 11.5 g/dL (12.9-16.9); Immature Granulocytes % 0.2 % (0-4); Lymphocytes # 0.6 K/mcL (0.6-4.6); Mean Corpuscular HGB Conc 33.5 g/dL (31.6-35.5); Mean Corpuscular Hemoglobin 31.9 pg (28.0-33.3); Mean Corpuscular Volume 95.3 fL (83.0-100.0); Mean Platelet Volume 10.4 fL (9.4-12.4); Monocytes # 0.1 K/mcL (0.0-1.3); Monocytes % 1.2 %; Neutrophils # 4.4 K/mcL (1.6-8.9); Platelet Count 139 K/mcL (140-400); Red Cell Distribution Width 15.9 % (11.5-14.5); Segmented Neutrophils % 87.2 %
[2016-12-06 12:29] LABS: Alanine Aminotransferase 13 Units/L (0-55); Albumin 3.3 g/dL (3.5-5.0); Albumin/Globulin Ratio 1.1 (1.1-2.2); Alkaline Phosphatase 66 Units/L (38-126); Aspartate Amino Transferase 15 Units/L (5-34); BUN/Creatinine Ratio 16 (6-26); Bilirubin,Total 0.7 mg/dL (0.2-1.2); Blood Urea Nitrogen 18 mg/dL (8-26); Calcium 8.7 mg/dL (8.6-10.8); Carbon Dioxide 22 mEq/L (19-29); Chloride 109 mEq/L (98-109); Globulin 2.9 g/dL (2.4-3.5); Glucose 137 mg/dL (70-99); Lipase 4 Units/L (8-78); Osmolality,Calculated 302 (280-300); Potassium 3.7 mEq/L (3.5-4.5); Sodium 144 mEq/L (136-145); Total Protein 6.2 g/dL (6.0-8.3); eGFR For African Americans > 60 (> 60); eGFR For Non-African Americans > 60 (> 60)
[2016-12-06] MEDS: 0.9 % Sodium Chloride 1,000 ML IVC SCH ×3 (14:21→21:23)
[2016-12-06] MEDS ORDERED: Naloxone 0.4 MG/ML INJ IVP ONE (14:32)
--- NOTE | 2016-12-06 16:05 | Electrocardiograph Report ---
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
[2016-12-06 16:18] LABS: Bilirubin,Urine Negative (Negative); Blood,Urine Large (Negative); Clarity,Urine Cloudy (Clear); Color,Urine Yellow (Yellow); Glucose,Urine (UA) Normal (Normal); Ketones,Urine Negative (Negative); Leukocyte Esterase,Urine Large (Negative); Nitrite,Urine Negative (Negative); Protein,Urine >=300 mg/dL (Neg-Trace); Urobilinogen,Urine Normal (Normal)
[2016-12-06 16:31] LABS: RBC,Urine 15-30 per hpf (0-3); Squamous Epithelial Cell,Urine Few per lpf (None-Few); WBC,Urine TNTC per hpf (0-3)
[2016-12-06] MEDS ORDERED: Ondansetron ODT 4 MG TAB.RAPDIS SL PRN (18:09)
[2016-12-06] MEDS ORDERED: Acetaminophen 325 MG TABLET PO PRN (18:09)
[2016-12-06] MEDS ORDERED: 0.9 % Sodium Chloride 1,000 ML IVC SCH (18:09)
[2016-12-06] MEDS ORDERED: Naloxone 0.4 MG/ML INJ IVP PRN ×2 (18:09)
--- NOTE | 2016-12-06 18:48 | Internal Med History&Physical ---
Date of Encounter: 12/06/16 Time of Encounter: 18:15 Assessment and Plan (1) Urinary tract infection Current visit: No Status: Acute He has been started on Rocephin through emergency room. I will add Macrobid while urine culture report is pending. Will also be given lactobacillus. Qualifiers: Urinary tract infection type: acute cystitis Hematuria presence: without hematuria Qualified Code(s): N30.00 - Acute cystitis without hematuria (2) Diabetes mellitus Current visit: No Status: Chronic Hemoglobin A1c was 6.3% on 10/02/2016. Continue Amaryl Qualifiers: Diabetes mellitus type: type 2 Diabetes mellitus complication status: without complication Diabetes mellitus termite control technician insulin use: without termite control technician use Qualified Code(s): E11.9 - Type 2 diabetes mellitus without complications (3) Anemia Current visit: No Status: Chronic We will check anemia testing in a.m. Qualifiers: Anemia type: iron deficiency Iron deficiency anemia type: unspecified iron deficiency Qualified Code(s): D50.9 - Iron deficiency anemia, unspecified Internal Medicine - H&P: HPI Chief complaint: Fever, confusion Admitted From: Home Plans for Post Hospital Care: Home History of present illness: Mr. Nix is a 86 year old male who came to emergency room after he was found to be confused by family. He had fever of 103.1 in emergency room with evidence of UTI. He was admitted to [facility] floor for ongoing care needs. He was hospitalized [facility] approximately 2 months ago with UTI. He had another UTI diagnosed 2 weeks after discharge. His history is pertinent for prostate cancer diagnosed approximately 2009. He was treated medically with hormone therapy with PSA being monitored by a [facility] urologist. He has past history of BPH and has had TUR. A Sorto catheter was inserted in the emergency room. He is on Vesicare for OAB. This had been discontinued at time of [facility] discharge in September after he had evidence of urinary retention. It was restarted last month by his [facility] urologist. Past Med Surg Social Fam HX - Past Medical History Medical history: cancer, other Psychiatric history: anxiety, depression - Past Surgical History Surgical History: cataract, hip replacement, orthopedic, other - Social History Smoking Status: Never smoker Smokeless Tobacco Status: No Alcohol use: none Drug use: none - Family History Father Adopted: No Living Status: Hx Family Cardiac Disorders: No Hx Family Respiratory Disorders: No Hx Family Cancer: Yes Hx Family GI Disorders: No Hx Family Endocrine Disorder: Yes Hx Family Neuromuscular Disorders: No Hx Family Neurologic Disorders: No Hx Family HEENT Disorders: No Hx Family Autoimmune Disorders: No Internal Medicine - H&P: Meds Glimepiride [Amaryl] 2 mg PO DAILY 10/16/15 [History] Leuprolide Acetate [Lupron Depot] 3.75 mg IM Q6M 10/16/15 [History] Metoprolol XL (24 HR) Succ [Toprol Xl] 25 mg PO DAILY 10/16/15 [History] Multivit-Min/FA/Lycopen/Lutein [Centrum Silver Tablet] 1 each PO DAILY 10/16/15 [History] Olmesartan Medoxomil [Benicar] 20 mg PO DAILY 10/16/15 [History] Venlafaxine HCl [Effexor Xr] 75 mg PO DAILY 10/16/15 [History] Abiraterone Acetate [Zytiga] 1,000 mg PO DAILY 01/30/16 [History] predniSONE [Prednisone] 5 mg PO BID 01/30/16 [History] Apixaban [Eliquis] 5 mg PO BID #60 tablet 02/01/16 [Rx] Calcium Carbonate [Calcium] 500 mg PO BID 02/15/16 [History] Denosumab [Prolia (For Outpatient Infusion)] 1 IM 10/01/16 [History] LORazepam [Ativan] 0.5 mg PO HS 12/06/16 [History] Solifenacin Succinate [Vesicare] 10 mg PO HS 12/06/16 [History] Allergies Sulfa (Sulfonamide Antibiotics) Allergy (Verified 10/01/16 10:59) See Comments patient states "long time ago can't remember reaction" tamsulosin [From Flomax] Adverse Reaction (Verified 10/01/16 10:59) See Comments patient states "long time ago can't remember reaction" All Systems PM: A 10-system review of systems was performed and is negative for pertinent findings except as documented above in the HPI. Review of systems: Review of systems from the September 2016 [facility] hospitalization were reviewed and revised as below. Gen.: His weight has decreased from 92.669 kg on 10/04/2016 to 90.718 kg emergency room today. Cardiovascular: He has history of hypertension. He has had DVT/pulmonary embolism within the past year and is now on Eliquis. He has not had known [place] or heart failure. Respiratory: He is a lifelong nonsmoker. He has been prescribed oxygen for nighttime use. The exact diagnosis is not known by the daughter. GI: He had pancreatitis in the past which was attributed to an offending medication (name unknown). He has not had recurrence. He has not had other disorders of his liver or gallbladder. : As per history of present illness Neurologic: There is no known large distribution strokes or seizures Endocrine: He was diagnosed with DM 2 approximately 2011. There is no known thyroid disease or hyperlipidemia Hematology/oncology: He had melanoma removed from his right shoulder area approximately 2015. 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 He has history of anemia with iron deficiency and was given iron dextran infusion during the September 2016 hospitalization. He had prostate cancer as per above. Psychiatric: He has depression but no significant anxiety other mental health issues Musk skeletal: He has DJD but no known gout or other bone joint or muscle disorders. - Constitutional Vitals: Temp Pulse Resp BP Pulse Ox 98.4 F 87 18 113/41 91 12/06/16 18:11 12/06/16 18:11 12/06/16 18:11 12/06/16 18:11 12/06/16 18:11 Exam: Gen.: He is a well-developed well-nourished male who appears in no severe distress at present time HEENT: Head is atraumatic normocephalic. Eyes: EOMI. There is no scleral icterus. Mouth: Mucosa is slightly dry. Neck: Supple and nontender. There is no thyromegaly or adenopathy noted. Heart: Regular without murmurs gallops or ectopics Lungs: No wheezes or crackles are heard. Abdomen: Soft and nontender. No masses or guarding noted. Extremities: There is no cyanosis edema or clubbing noted. Dorsalis pedis and posttibial pulses are trace palpable bilaterally. His feet are cool to touch Neurologic: Mental status: He is able to answer simple questions appropriately. Most of the history is supplied by his daughter. Cranial nerves: Smile is symmetric. Forehead wrinkles bilaterally. Tongue protrudes midline. EOMI. Motor: There is no pronator drift. Cerebellar: Finger to nose is intact bilaterally. Skin: Warm and dry Internal Med - H&P Results - Labs CBC & Chem 7: 12/06/16 12:02 12/06/16 12:02
[2016-12-06] MEDS: 0.45 % Sodium Chloride w/KCl 20 MEQ/1,000 ML MLS IVC SCH (21:11)
[2016-12-06] MEDS: LEUPROLIDE ACETATE 3.75 MG IM SCH ×2 (21:25→21:29)
[2016-12-06] MEDS: Lactobacillus 1 EACH CAP.SPRINK PO SCH (21:27)
[2016-12-06] MEDS: *HR* LORazepam 0.5 MG TABLET PO SCH (21:27)
[2016-12-06] MEDS: Nitrofurantoin (BID) 100 MG CAPSULE PO SCH (21:27)
[2016-12-06] MEDS: predniSONE 5 MG TABLET PO SCH (21:28)
[2016-12-07 05:40] LABS: Basophils % 0.4 %; Eosinophils % 0.6 %; Hemoglobin 10.4 g/dL (12.9-16.9); Immature Granulocytes % 0.6 % (0-4); Lymphocytes # 0.7 K/mcL (0.6-4.6); Lymphocytes % 13.6 %; Mean Corpuscular HGB Conc 32.5 g/dL (31.6-35.5); Mean Corpuscular Hemoglobin 32.3 pg (28.0-33.3); Mean Corpuscular Volume 99.4 fL (83.0-100.0); Mean Platelet Volume 9.7 fL (9.4-12.4); Monocytes # 0.4 K/mcL (0.0-1.3); Monocytes % 7.3 %; Neutrophils # 4.2 K/mcL (1.6-8.9); Platelet Count 106 K/mcL (140-400); Red Blood Count 3.22 M/mcL (4.19-5.50); Red Cell Distribution Width 16.2 % (11.5-14.5); Segmented Neutrophils % 77.5 %
[2016-12-07 05:55] LABS: BUN/Creatinine Ratio 14 (6-26); Blood Urea Nitrogen 13 mg/dL (8-26); Calcium 7.7 mg/dL (8.6-10.8); Carbon Dioxide 24 mEq/L (19-29); Chloride 112 mEq/L (98-109); Glucose 122 mg/dL (70-99); Osmolality,Calculated 299 (280-300); Phosphorous 2.1 mg/dL (2.3-4.7); Potassium 3.9 mEq/L (3.5-4.5); Sodium 144 mEq/L (136-145); eGFR For African Americans > 60 (> 60); eGFR For Non-African Americans > 60 (> 60)
[2016-12-07] MEDS: Multivit/Ca/Min/Fe/FA 1 TAB TABLET PO SCH (08:54)
[2016-12-07] MEDS: predniSONE 5 MG TABLET PO SCH (08:55)
[2016-12-07] MEDS: Nitrofurantoin (BID) 100 MG CAPSULE PO SCH ×2 (08:55→17:17)
[2016-12-07] MEDS: Lactobacillus 1 EACH CAP.SPRINK PO SCH ×2 (08:55→20:10)
[2016-12-07] MEDS: *HR* Glimepiride 2 MG TABLET PO SCH (08:55)
[2016-12-07] MEDS: Metoprolol XL (24 HR) Succ 25 MG TAB.ER.24H PO SCH (08:56)
[2016-12-07] MEDS ORDERED: Venlafaxine XR (24 HR) 75 MG CAP.ER.24H PO SCH (09:00)
[2016-12-07] MEDS: 0.45 % Sodium Chloride w/KCl 20 MEQ/1,000 ML MLS IVC SCH (09:22)
[2016-12-07 11:29] LABS: % Iron Saturation 6 % (20-55); Iron 13 mcg/dL (65-175); Transferrin 167 mg/dL (174-364)
[2016-12-07 11:50] LABS: Ferritin 201 ng/ml (22-275)
[2016-12-07 11:57] LABS: Folate 15.2 ng/mL (7.0-31.4)
[2016-12-07] MEDS ORDERED: [UNRECOGNIZED DRUG - OTHER] PO PRN (12:43)
--- NOTE | 2016-12-07 12:45 | Internal Med Progress Note ---
Date of Encounter: 12/07/16 Time of Encounter: 12:35 - Assessment and plan (1) Urinary tract infection Current Visit: No Status: Acute Assessment and plan: December 07. Continue Rocephin and Macrobid. Urine culture is pending Qualifiers: Urinary tract infection type: acute cystitis Hematuria presence: without hematuria Qualified Code(s): N30.00 - Acute cystitis without hematuria (2) Diabetes mellitus Current Visit: No Status: Chronic Assessment and plan: December 07. Continue Amaryl. Qualifiers: Diabetes mellitus type: type 2 Diabetes mellitus complication status: without complication Diabetes mellitus skilled nursing insulin use: without moth exterminator use Qualified Code(s): E11.9 - Type 2 diabetes mellitus without complications (3) Anemia Current Visit: No Status: Chronic Assessment and plan: December 07. Anemia testing reviewed. Will give iron dextran. Qualifiers: Anemia type: iron deficiency Iron deficiency anemia type: unspecified iron deficiency Qualified Code(s): D50.9 - Iron deficiency anemia, unspecified - Subjective Interval history: December 07. He has no new complaints and feels better. He does mention he has occasional stomach gas sensation. - Constitutional Vitals: Temp Pulse Resp BP Pulse Ox 98.4 F 58 18 128/67 97 12/07/16 11:18 12/07/16 11:18 12/07/16 11:18 12/07/16 11:18 12/07/16 11:18 Exam: He is sitting on the side of the bed resting comfortably. His affect is bright and cheerful. He is much more talkative. I reviewed his medications and lab results. Internal Medicine: Result - Labs CBC & Chem 7: 12/07/16 05:23 12/07/16 05:23 Labs: Short CBC 12/07/16 Range/Units 05:23 WBC 5.4 (4.3-11.1) K/mcL Hgb 10.4 L (12.9-16.9) g/dL Hct 32.0 L (37.5-50.1) % Plt Count 106 L (140-400) K/mcL Neutrophils # 4.2 (1.6-8.9) K/mcL BMP 12/07/16 05:23 Sodium 144 Potassium 3.9 Chloride 112 H Carbon Dioxide 24 BUN 13 Creatinine 0.91 Glucose 122 H Calcium 7.7 L Consult Discharge Plan - Plan Referrals: Ernesto Ceron MD [Primary Care Provider] - 1 week
[2016-12-07] MEDS ORDERED: Simethicone 80 MG TAB.CHEW PO PRN (12:47)
[2016-12-07] MEDS ORDERED: SODIUM CHLORIDE 0.9% IVPB ONE (14:00)
[2016-12-07] MEDS ORDERED: IRON DEXTRAN COMPLEX IVPB ONE (14:00)
[2016-12-07] MEDS: *HR* LORazepam 0.5 MG TABLET PO SCH (20:10)
[2016-12-07] MEDS ORDERED: *HR* Propranolol 1 MG/ML VIAL IVP ONE (22:37)
[2016-12-07] MEDS ORDERED: *HR* Digoxin 0.5 MG/2 ML AMPUL IVP ONE (22:37)
[2016-12-08] MEDS: ZYTIGA PO SCH ×2 (06:30→09:19)
[2016-12-08 06:50] LABS: Basophils % 0.3 %; Eosinophils # 0.1 K/mcL (0.0-0.6); Eosinophils % 1.7 %; Hematocrit 30.7 % (37.5-50.1); Hemoglobin 10.4 g/dL (12.9-16.9); Immature Granulocytes % 0.4 % (0-4); Lymphocytes # 2.2 K/mcL (0.6-4.6); Lymphocytes % 29.7 %; Mean Corpuscular HGB Conc 33.9 g/dL (31.6-35.5); Mean Corpuscular Hemoglobin 32.7 pg (28.0-33.3); Mean Corpuscular Volume 96.5 fL (83.0-100.0); Mean Platelet Volume 10.7 fL (9.4-12.4); Monocytes # 1.1 K/mcL (0.0-1.3); Monocytes % 15.6 %; Neutrophils # 3.8 K/mcL (1.6-8.9); Platelet Count 138 K/mcL (140-400); Red Blood Count 3.18 M/mcL (4.19-5.50); Red Cell Distribution Width 15.5 % (11.5-14.5); Segmented Neutrophils % 52.3 %
[2016-12-08 07:07] LABS: Platelet Estimate Normal (Normal)
[2016-12-08 07:08] LABS: BUN/Creatinine Ratio 14 (6-26); Blood Urea Nitrogen 11 mg/dL (8-26); Calcium 8.4 mg/dL (8.6-10.8); Carbon Dioxide 23 mEq/L (19-29); Chloride 116 mEq/L (98-109); Glucose 120 mg/dL (70-99); Osmolality,Calculated 303 (280-300); Potassium 3.5 mEq/L (3.5-4.5); Sodium 146 mEq/L (136-145); eGFR For African Americans > 60 (> 60); eGFR For Non-African Americans > 60 (> 60)
[2016-12-08] MEDS: predniSONE 5 MG TABLET PO SCH ×2 (08:43→09:16)
[2016-12-08] MEDS ORDERED: Venlafaxine XR (24 HR) 37.5 MG CAP.ER.24H PO SCH (09:00)
[2016-12-08] MEDS: Lactobacillus 1 EACH CAP.SPRINK PO SCH (09:16)
[2016-12-08] MEDS: Nitrofurantoin (BID) 100 MG CAPSULE PO SCH (09:16)
[2016-12-08] MEDS: *HR* Glimepiride 2 MG TABLET PO SCH (09:16)
[2016-12-08] MEDS: Multivit/Ca/Min/Fe/FA 1 TAB TABLET PO SCH (09:16)
[2016-12-08] MEDS: Metoprolol XL (24 HR) Succ 25 MG TAB.ER.24H PO SCH (09:17)
[2016-12-08 10:57] VITALS: BP 129/60
--- NOTE | 2016-12-08 12:23 | Discharge Summary ---
Date of Encounter: 12/08/16 Time of Encounter: 12:10 - Discharge Diagnosis (1) Urinary tract infection Priority: Primary Status: Resolved Qualifiers: Urinary tract infection type: acute cystitis Hematuria presence: without hematuria Qualified Code(s): N30.00 - Acute cystitis without hematuria (2) Diabetes mellitus Priority: Secondary Status: Chronic Qualifiers: Diabetes mellitus type: type 2 Diabetes mellitus complication status: without complication Diabetes mellitus tank terminal gauger insulin use: without half-way use Qualified Code(s): E11.9 - Type 2 diabetes mellitus without complications (3) Anemia Priority: Secondary Status: Chronic Qualifiers: Anemia type: iron deficiency Iron deficiency anemia type: unspecified iron deficiency Qualified Code(s): D50.9 - Iron deficiency anemia, unspecified - Discharge Medications Prescriptions: Lactobacillus [Culturelle] 1 each PO BID #10 cap.sprink Nitrofurantoin (BID) [Macrobid] 100 mg PO BIDWM #10 Home Medications: Glimepiride [Amaryl] 2 mg PO DAILY 10/16/15 [History] Leuprolide Acetate [Lupron Depot] 3.75 mg IM Q6M 10/16/15 [History] Metoprolol XL (24 HR) Succ [Toprol Xl] 25 mg PO DAILY 10/16/15 [History] Multivit-Min/FA/Lycopen/Lutein [Centrum Silver Tablet] 1 each PO DAILY 10/16/15 [History] Olmesartan Medoxomil [Benicar] 20 mg PO DAILY 10/16/15 [History] Venlafaxine HCl [Effexor Xr] 75 mg PO DAILY 10/16/15 [History] Abiraterone Acetate [Zytiga] 1,000 mg PO DAILY 01/30/16 [History] predniSONE [Prednisone] 5 mg PO BID 01/30/16 [History] Apixaban [Eliquis] 5 mg PO BID #60 tablet 02/01/16 [Rx] Calcium Carbonate [Calcium] 500 mg PO BID 02/15/16 [History] Denosumab [Prolia (For Outpatient Infusion)] 1 mg IM 10/01/16 [History] LORazepam [Ativan] 0.5 mg PO HS 12/06/16 [History] Solifenacin Succinate [Vesicare] 10 mg PO HS 12/06/16 [History] Lactobacillus [Culturelle] 1 each PO BID #10 capava 12/08/16 [Rx] Nitrofurantoin (BID) [Macrobid] 100 mg PO BIDWM #10 12/08/16 [Rx] Allergies/Adverse Reactions: Allergies Sulfa (Sulfonamide Antibiotics) Allergy (Verified 10/01/16 10:59) See Comments patient states "long time ago can't remember reaction" tamsulosin [From Flomax] Adverse Reaction (Verified 10/01/16 10:59) See Comments patient states "long time ago can't remember reaction" Procedures/tests Complete & Pending: Procedures Performed prior 72 hours Category Date Time Status EKG [ECG 12 lead ECG] [ECG] Stat Y 12/07/16 22:31 Ordered Date of admission: 12/06/16 18:49 Primary care physician: Ernesto Ceron MD Consults: 12/07/16 14:28 Consult to Occupational Therapy [CONS] Routine Comment: Evaluate, develop and implement POC Reason for Consult: Weakness 12/07/16 14:29 Consult to Physical Therapy [CONS] Routine Comment: Evaluate, develop and implement POC Reason for Consult: Weakness - Patient Status Disposition: Home, Self-Care Condition: Fair Functional capacity at discharge: uses cane/walker Overall status at discharge: patient is progressing back to baseline - Discharge Instructions Follow Up With: Ernesto Ceron MD [Primary Care Provider] - 1 week - Diet and Activity Activity: resume usual activities as tolerated Diet: advance to your usual diet Hospital course: Mr. Nix is a 86 year old male who came to emergency room after he was found to be confused by family. He had fever of 103.1 in emergency room with evidence of UTI. He was admitted to [facility] floor for ongoing care needs. Initial orders were written by the emergency room physician. I saw him on December 06 and performed the history and physical. He was started on Rocephin through emergency room. I added Macrobid and lactobacillus. Urine culture returned showing no growth. He remained afebrile after the first 24 hours of hospitalization. He will continue with Macrobid and lactobacillus for 5 additional days at discharge. Anemia testing showed iron 13, transferrin saturation 6%, transferrin 167, ferritin 201, B12 272, and folate 15.2. He was given an iron dextran infusion. When I saw him on December 08 he was stable for discharge home. He will follow with his PCP Dr. Ceron within 1 week. I told him he should discuss with Dr. Ceron and/or his urologist about using suppressive antibiotic regimen to decrease risk of recurrent UTIs. - Time Spent with Patient Total time spent providing and/or coordinating discharge services: - Constitutional Vitals: Temp Pulse Resp BP Pulse Ox 98.5 F 56 16 129/60 96 12/08/16 10:56 12/08/16 10:56 12/08/16 10:56 12/08/16 10:56 12/08/16 10:56
--- NOTE | 2016-12-08 15:36 | Electrocardiograph Report ---
[place] [id number] Test Date: 2016-12-07 Pat Name: Francis Nix Department: [id number] Room: [facility] Gender: M Online Marketing Coordinator: [id number] : 1930 Requested By: Ernesto Arce Order Number: [id number] Reading MD: Ponce Lewis Measurements Intervals Parker Rate: 131 P: MO: 0 QRS: 18 QRSD: 158 T: 36 QT: 352 QTc: 429 Interpretive Statements ATRIAL FIBRILLATION WITH RAPID VENTRICULAR RESPONSE RIGHT BUNDLE BRANCH BLOCK Electronically Signed On 12-08-2016 15:35:04 EDT by Ponce Lewis
--- NOTE | 2016-12-09 09:34 | Physician Discharge Referral ---
Home Health/Hosp Referral Info Transfer to: Home Health Attending Provider: Claude Provider in Charge Post Discharge: PCP (Ernesto Ceron M.D.) - Diagnosis (1) Urinary tract infection Priority: Primary Status: Resolved (2) Diabetes mellitus Priority: Secondary Status: Chronic (3) Anemia Priority: Secondary Status: Chronic - Respiratory Orders Smoking Cessation: Smoking cessation has been advised. For more information, call the [place] Tobacco Quit Line at 0-731-UXDX-NOW. - Activity Activity Orders: Ambulate - Services Needed Following services are medically necessary services: Nursing, Home Health Aide, Physical Therapy, Occupational Therapy - Transfer Medications Prescriptions: Lactobacillus [Culturelle] 1 each PO BID #10 cap.sprink Nitrofurantoin (BID) [Macrobid] 100 mg PO BIDWM #10 Home Medications: Glimepiride [Amaryl] 2 mg PO DAILY 10/16/15 [History] Leuprolide Acetate [Lupron Depot] 3.75 mg IM Q6M 10/16/15 [History] Metoprolol XL (24 HR) Succ [Toprol Xl] 25 mg PO DAILY 10/16/15 [History] Multivit-Min/FA/Lycopen/Lutein [Centrum Silver Tablet] 1 each PO DAILY 10/16/15 [History] Olmesartan Medoxomil [Benicar] 20 mg PO DAILY 10/16/15 [History] Venlafaxine HCl [Effexor Xr] 75 mg PO DAILY 10/16/15 [History] Abiraterone Acetate [Zytiga] 1,000 mg PO DAILY 01/30/16 [History] predniSONE [Prednisone] 5 mg PO BID 01/30/16 [History] Apixaban [Eliquis] 5 mg PO BID #60 tablet 02/01/16 [Rx] Calcium Carbonate [Calcium] 500 mg PO BID 02/15/16 [History] Denosumab [Prolia (For Outpatient Infusion)] 1 mg IM 10/01/16 [History] LORazepam [Ativan] 0.5 mg PO HS 12/06/16 [History] Solifenacin Succinate [Vesicare] 10 mg PO HS 12/06/16 [History] Lactobacillus [Culturelle] 1 each PO BID #10 cap.sprink 12/08/16 [Rx] Nitrofurantoin (BID) [Macrobid] 100 mg PO BIDWM #10 08/10/17 [Rx] Allergies/Adverse Reactions: Allergies Sulfa (Sulfonamide Antibiotics) Allergy (Verified 10/01/16 10:59) See Comments patient states "long time ago can't remember reaction" tamsulosin [From Flomax] Adverse Reaction (Verified 10/01/16 10:59) See Comments patient states "long time ago can't remember reaction" Certification: Further, I certify that my clinical findings support that this patient is homebound (i.e. absences from home require considerable and taxing effort and are for medical reasons or nondenominational services or infrequently or short duration when for other reasons) because: Homebound Reason: Leaving home requires considerable and taxing effort due to condition (Impairment in ambulation ability) Attestation: My signature below is to certify that this patient is under my care and that I, or nurse practitioner, or a physician's economist research assistant working with me, has a face-to -face encounter with this patient.
== END 2016-12-08 13:43 | disposition home health service (06) | DRG 690 ==
LOC: INPPIK 11:23 → EMEROOPIK 11:23 → INPPIK 17:51
PROVIDERS: ADMIT Internal Medicine; ATTEND Internal Medicine

== ENCOUNTER 2017-03-08 14:30 | Observation (INO) ==
--- NOTE | 2017-03-08 14:43 | Emergency Department Note ---
Disposition Clinical Impression: UTI (urinary tract infection), Fall, Elevated troponin Disposition: Admitted As Inpatient Condition: Good Referrals: Karlene Lino, SPECIALTY SALES REPRESENTATIVE [Advanced Practice Nurse] - Forms: Work/School Release, ED Satisfaction Letter Time of Disposition: 17:43 Weakness HPI - General Chief complaint: ED Chest Pain Stated complaint: weak and fall, started new medication Time Seen by Provider: 03/08/17 14:35 Source: patient Mode of arrival: ambulatory Limitations: no limitations Nursing Notes Reviewed: Yes Vital Signs Reviewed: Yes - History of Present Illness HPI Narrative: 87-year-old white male who presents complaining of some dizziness and 2 falls since he changed his cardiac medications. He is on amiodarone 200 mg twice a day. He was on Cardizem 180, and was increased to 40 yesterday. Since then he has felt generally weak and lightheaded. He states he has fallen twice. He does not think he injured himself. He does not think he hit his head. He has had some vague intermittent right-sided chest discomfort which she has difficulty describing. No shortness of breath. No other complaints. Pt Subjective Complaint: generalized weakness/fatigue Onset (ago): day(s) (2) Duration: constant Location: generalized Migration: none Pain Severity: none Pain Scale: 0 Improves with: none Worsens with: none Context: new medication Associated symptoms: Reports: chest pain - Related Data Home Medications Medication Instructions Recorded Confirmed Glimepiride [Amaryl] 2 mg PO DAILY 10/16/15 03/08/17 Venlafaxine HCl [Effexor Xr] 75 mg PO DAILY 10/16/15 03/08/17 predniSONE [Prednisone] 5 mg PO DAILY 01/30/16 03/08/17 Abiraterone Acetate [Zytiga] 250 mg PO DAILY 03/08/17 03/08/17 Amiodarone [Cordarone] 200 mg PO BID 03/08/17 03/08/17 Diltiazem HCl [Diltiazem 24Hr Cd] 240 mg PO DAILY 03/08/17 03/08/17 Lupron Depot [id number] 03/08/17 Previous Rx's Medication Instructions Recorded Apixaban [Eliquis] 5 mg PO BID #60 tablet 02/01/16 Allergies Allergy/AdvReac Type Severity Reaction Status Date / Time Sulfa (Sulfonamide Allergy See Verified 01/13/17 14:18 Antibiotics) Comments tamsulosin [From Flomax] AdvReac See Verified 01/13/17 14:18 Comments All systems ED: reviewed and negative except as stated. Constitutional: Denies: fever, chills Eyes: Denies: vision change ENT ED: Denies: ear pain Cardiovascular: Reports: chest pain Respiratory: Denies: cough, dyspnea Gastrointestinal: Denies: abdominal pain, nausea, vomiting, diarrhea Genitourinary: Denies: urgency, dysuria, frequency Musculoskeletal: Denies: back pain, neck pain Neurological: Reports: weakness. Denies: headache, numbness, paresthesias Past Medical History - Past Medical History Medical history: Reports: cancer, other Surgical history: Reports: cataract, hip replacement, orthopedic, other Psychiatric history: Reports: anxiety, depression - Social History Smoking Status: Never smoker Smokeless Tobacco Status: No Alcohol use: Reports: none Drug use: Reports: none Physical Exam - General Limitations: no limitations General appearance: alert, in no apparent distress - Head Head exam: atraumatic, normocephalic - Eye Eye exam: Present: PERRL, EOMI. Absent: scleral icterus, conjunctival injection - ENT ENT exam: normal oropharynx, mucous membranes moist, TM's normal bilaterally - Neck Neck exam: Present: normal inspection, full ROM, trachea midline. Absent: tenderness, lymphadenopathy - Respiratory Respiratory exam: Present: normal lung sounds bilaterally. Absent: respiratory distress, wheezes - Cardiovascular Cardiovascular exam: Present: regular rate, normal rhythm, normal heart sounds - Abdominal Exam Abdominal exam: Present: soft, Non-Tender, normal bowel sounds. Absent: organomegaly, mass - Extremities Exam Extremities exam: Present: full ROM (Mild right knee pain on movement.), normal capillary refill. Absent: pedal edema, calf tenderness - Neurological Exam Neurological exam: Present: alert, oriented X3. Absent: motor sensory deficit - Psychiatric Psychiatric exam: Present: normal affect, normal mood - Skin Skin exam: Present: warm, dry, intact, normal color. Absent: cyanosis, diaphoresis Course - Reevaluation(s) Reevaluation #1: His heart rate remained stable around 70. His blood pressure remained stable. We did try to do orthostatics, when he set him up his heart rate did not increase significantly, his blood pressure did not drop, but he felt weak and lightheaded and did not feel like he could stand. Time: 17:00 Reevaluation #2: Discussed with Dr. Arce. He accepts the patient for observation admission. Time: 17:41 Vital Signs Temperature 98.1 F 03/08/17 14:33 Pulse Rate 68 03/08/17 14:33 Respiratory Rate 18 03/08/17 14:33 Blood Pressure 128/50 03/08/17 14:33 O2 Sat by Pulse Oximetry 93 03/08/17 14:33 Temperature 98.1 F 03/08/17 14:33 Pulse Rate 71 03/08/17 17:26 Respiratory Rate 20 03/08/17 17:26 Blood Pressure 139/62 03/08/17 17:26 O2 Sat by Pulse Oximetry 90 03/08/17 17:26 Oxygen Delivery Oxygen Delivery Room Air Weakness - MDM Narrative Medical decision making narrative: Differential includes but is not limited to medication reaction, myocardial infarction, anemia, hypoglycemia, dehydration, electrolyte abnormality, head injury. The etiology of his weakness/dizziness is not clear. His initial troponin was minimally elevated, his repeat troponin is unchanged. He is having no chest pain at this time. His heart rate is arranged stable. His blood pressure stable, he has not been hypotensive. I am not convinced that his medication changes cause of his dizziness and weakness. He does have a urinary tract infection. There is no evidence of fractures from his falls. He was given IV Rocephin. His urine will be cultured. He will be placed in an observation bed. - Lab Data Lab results reviewed: Yes I reviewed the patient's lab results. Result diagrams: 03/08/17 14:54 03/08/17 14:54 Lab Results 03/08/17 03/08/17 03/08/17 Range/Units 14:54 14:54 14:54 WBC 9.6 (4.3-11.1) K/mcL RBC 3.46 L (4.19-5.50) M/mcL Hgb 11.5 L (12.9-16.9) g/dL Hct 34.3 L (37.5-50.1) % MCV 99.1 (83.0-100.0) fL MCH 33.2 (28.0-33.3) pg MCHC 33.5 (31.6-35.5) g/dL RDW 13.8 (11.5-14.5) % Plt Count 149 (140-400) K/mcL MPV 10.6 (9.4-12.4) fL Immature Gran % 0.5 (0-4) % Seg Neutrophils % 90.5 % Lymphocytes % 6.7 % Monocytes % 1.8 % Eosinophils % 0.2 % Basophils % 0.3 % Neutrophils # 8.7 (1.6-8.9) K/mcL Lymphocytes # 0.6 (0.6-4.6) K/mcL Monocytes # 0.2 (0.0-1.3) K/mcL Eosinophils # 0.0 (0.0-0.6) K/mcL Basophils # 0.0 (0.0-0.2) K/mcL PT 16.1 H (9.4-12.1) Seconds INR 1.5 Sodium 144 (136-145) mEq/L Potassium 3.4 L (3.5-4.5) mEq/L Chloride 107 (98-109) mEq/L Carbon Dioxide 26 (19-29) mEq/L BUN 15 (8-26) mg/dL Creatinine 1.25 (0.72-1.25) mg/dL Est GFR ( Amer) > 60 (> 60) Est GFR (Non-Af Amer) 55 L (> 60) BUN/Creatinine Ratio 12 (6-26) Glucose 170 H (70-99) mg/dL Calculated Osmolality 303 H (280-300) Calcium 9.7 (8.6-10.8) mg/dL Total Bilirubin 0.8 (0.2-1.2) mg/dL AST 20 (5-34) Units/L ALT 15 (0-55) Units/L Alkaline Phosphatase 62 (38-126) Units/L Troponin I (0-0.03) ng/mL Serum Total Protein 6.7 (6.0-8.3) g/dL Albumin 3.4 L (3.5-5.0) g/dL Globulin 3.3 (2.4-3.5) g/dL Albumin/Globulin Ratio 1.0 L (1.1-2.2) Urine Color (Yellow) Urine Clarity (Clear) Urine pH (5.0-8.0) pH Units Ur Specific [place] (1.010-1.025) Urine Protein (Neg-Trace) mg/dL Urine Glucose (UA) (Normal) mg/dL Urine Ketones (Negative) mg/dL Urine Blood (Negative) Urine Nitrite (Negative) Urine Bilirubin (Negative) Urine Urobilinogen (Normal) mg/dL Ur Leukocyte Esterase (Negative) Urine Microscopic RBC (0-3) per hpf Urine Microscopic WBC (0-3) per hpf Ur Squamous Epith Cells (None-Few) per lpf Urine Bacteria (None-Few) per hpf Urine Mucus (Few) Ur Culture Indicated? (NO) 03/08/17 03/08/17 03/08/17 Range/Units 14:54 15:35 16:53 WBC (4.3-11.1) K/mcL RBC (4.19-5.50) M/mcL Hgb (12.9-16.9) g/dL Hct (37.5-50.1) % MCV (83.0-100.0) fL MCH (28.0-33.3) pg MCHC (31.6-35.5) g/dL RDW (11.5-14.5) % Plt Count (140-400) K/mcL MPV (9.4-12.4) fL Immature Gran % (0-4) % Seg Neutrophils % % Lymphocytes % % Monocytes % % Eosinophils % % Basophils % % Neutrophils # (1.6-8.9) K/mcL Lymphocytes # (0.6-4.6) K/mcL Monocytes # (0.0-1.3) K/mcL Eosinophils # (0.0-0.6) K/mcL Basophils # (0.0-0.2) K/mcL PT (9.4-12.1) Seconds INR Sodium (136-145) mEq/L Potassium (3.5-4.5) mEq/L Chloride (98-109) mEq/L Carbon Dioxide (19-29) mEq/L BUN (8-26) mg/dL Creatinine (0.72-1.25) mg/dL Est GFR ( Amer) (> 60) Est GFR (Non-Af Amer) (> 60) BUN/Creatinine Ratio (6-26) Glucose (70-99) mg/dL Calculated Osmolality (280-300) Calcium (8.6-10.8) mg/dL Total Bilirubin (0.2-1.2) mg/dL AST (5-34) Units/L ALT (0-55) Units/L Alkaline Phosphatase (38-126) Units/L Troponin I 0.05 H* 0.05 H* (0-0.03) ng/mL Serum Total Protein (6.0-8.3) g/dL Albumin (3.5-5.0) g/dL Globulin (2.4-3.5) g/dL Albumin/Globulin Ratio (1.1-2.2) Urine Color Light Yellow (Yellow) Urine Clarity Cloudy A (Clear) Urine pH 6.0 (5.0-8.0) pH Units Ur Specific [place] 1.015 (1.010-1.025) Urine Protein Negative (Neg-Trace) mg/dL Urine Glucose (UA) Normal (Normal) mg/dL Urine Ketones Negative (Negative) mg/dL Urine Blood Trace-lysed H (Negative) Urine Nitrite Negative (Negative) Urine Bilirubin Negative (Negative) Urine Urobilinogen Normal (Normal) mg/dL Ur Leukocyte Esterase Moderate H (Negative) Urine Microscopic RBC 0-3 (0-3) per hpf Urine Microscopic WBC TNTC H (0-3) per hpf Ur Squamous Epith Cells Few (None-Few) per lpf Urine Bacteria Many H (None-Few) per hpf Urine Mucus Few (Few) Ur Culture Indicated? YES A (NO) - Radiology Data Radiology results reviewed: Yes I reviewed the patient's radiology results. Impressions Chest X-Ray 03/08/17 14:39 IMPRESSION: No acute process. D/ / 03/08/2017 15:05:26 Markell Luna MD / keysha Interpreting Provider: Markell Luna MD Head CT 03/08/17 14:41 IMPRESSION: Motion degraded examination. Stable head CT. No acute intracranial abnormality. D/ / Dorene Jean MD / Dorene Jean MD Interpreting Provider: Dorene Jean MD Hip X-Ray 03/08/17 14:49 IMPRESSION: 1. No acute osseous abnormality of the bilateral hips. 2. Status post right hip arthroplasty. No evidence of hardware complication. 3. Severe degenerative changes of the left hip. D/ / Duglas Mejía MD / Duglas Mejía MD Interpreting Provider: Duglas Mejía MD Hip X-Ray 03/08/17 14:49 IMPRESSION: 1. No acute osseous abnormality of the bilateral hips. 2. Status post right hip arthroplasty. No evidence of hardware complication. 3. Severe degenerative changes of the left hip. D/ / Duglas Mejía MD / Duglas Mejía MD Interpreting Provider: Duglas Mejía MD Knee X-Ray 03/08/17 14:49 IMPRESSION: No acute abnormality of the left knee. D/ / Anjel Benito MD / Anjel Benito MD Interpreting Provider: Anjel Benito MD Cervical Spine CT 03/08/17 15:49 IMPRESSION: No acute abnormality of the cervical spine. D/ / Markell Luna MD / Markell Luna MD Interpreting Provider: Markell Luna MD - EKG Data EKG attestation: Yes I reviewed and interpreted this EKG. EKG results narrative: Sinus rhythm, left atrial enlargement, right bundle branch block, nonspecific ST -T changes. Rhythm strip is sinus rhythm with rate of 66, ME 197 ms, QRS 162 ms no other ectopy as interpreted by me. This is compared to a tracing dated , no significant change.
[2017-03-08 15:03] LABS: Basophils % 0.3 %; Eosinophils % 0.2 %; Hematocrit 34.3 % (37.5-50.1); Hemoglobin 11.5 g/dL (12.9-16.9); Immature Granulocytes % 0.5 % (0-4); Lymphocytes # 0.6 K/mcL (0.6-4.6); Lymphocytes % 6.7 %; Mean Corpuscular HGB Conc 33.5 g/dL (31.6-35.5); Mean Corpuscular Hemoglobin 33.2 pg (28.0-33.3); Mean Corpuscular Volume 99.1 fL (83.0-100.0); Mean Platelet Volume 10.6 fL (9.4-12.4); Monocytes # 0.2 K/mcL (0.0-1.3); Monocytes % 1.8 %; Neutrophils # 8.7 K/mcL (1.6-8.9); Platelet Count 149 K/mcL (140-400); Red Blood Count 3.46 M/mcL (4.19-5.50); Red Cell Distribution Width 13.8 % (11.5-14.5); Segmented Neutrophils % 90.5 %
[2017-03-08 15:07] LABS: INR 1.5; Prothrombin Time 16.1 Seconds (9.4-12.1)
[2017-03-08 15:20] LABS: Alanine Aminotransferase 15 Units/L (0-55); Albumin 3.4 g/dL (3.5-5.0); Alkaline Phosphatase 62 Units/L (38-126); Aspartate Amino Transferase 20 Units/L (5-34); BUN/Creatinine Ratio 12 (6-26); Bilirubin,Total 0.8 mg/dL (0.2-1.2); Blood Urea Nitrogen 15 mg/dL (8-26); Calcium 9.7 mg/dL (8.6-10.8); Carbon Dioxide 26 mEq/L (19-29); Chloride 107 mEq/L (98-109); Globulin 3.3 g/dL (2.4-3.5); Glucose 170 mg/dL (70-99); Osmolality,Calculated 303 (280-300); Potassium 3.4 mEq/L (3.5-4.5); Sodium 144 mEq/L (136-145); Total Protein 6.7 g/dL (6.0-8.3); eGFR For African Americans > 60 (> 60); eGFR For Non-African Americans 55 (> 60)
[2017-03-08 15:48] LABS: Bilirubin,Urine Negative (Negative); Blood,Urine Trace-lysed (Negative); Clarity,Urine Cloudy (Clear); Glucose,Urine (UA) Normal (Normal); Ketones,Urine Negative (Negative); Leukocyte Esterase,Urine Moderate (Negative); Nitrite,Urine Negative (Negative); Protein,Urine Negative (Neg-Trace); Specific Gravity,Urine 1.015 (1.010-1.025); Urobilinogen,Urine Normal (Normal)
[2017-03-08 15:54] LABS: Color,Urine Light Yellow (Yellow)
[2017-03-08 15:56] LABS: Bacteria,Urine Many per hpf (None-Few); Mucus,Urine Few (Few); RBC,Urine 0-3 per hpf (0-3); Squamous Epithelial Cell,Urine Few per lpf (None-Few); WBC,Urine TNTC per hpf (0-3)
[2017-03-08] MEDS ORDERED: cefTRIAXone 1,000 MG in Water for inj. (sterile) 10 ML IVP ONE (16:16)
[2017-03-08] MEDS ORDERED: Naloxone 0.4 MG/ML INJ IVP PRN (18:18)
[2017-03-08] MEDS ORDERED: traZODone 50 MG TABLET PO PRN (18:18)
[2017-03-08] MEDS ORDERED: cefTRIAXone 1,000 MG in Water for inj. (sterile) 10 ML IVP SCH (18:30)
[2017-03-08] MEDS: APIXABAN 5 MG TABLET PO SCH (21:27)
[2017-03-08] MEDS: 0.9 % Sodium Chloride 1,000 ML IVC SCH (21:27)
[2017-03-08] MEDS: *HR* Amiodarone 200 MG TABLET PO SCH (21:28)
[2017-03-08] MEDS: traMADol 50 MG TABLET PO PRN (21:28)
[2017-03-09] MEDS: traMADol 50 MG TABLET PO PRN ×3 (04:48→21:26)
[2017-03-09] MEDS: Diltiazem CD (24hr) 240 MG CAPSULE PO SCH (07:03)
[2017-03-09] MEDS: *HR* Amiodarone 200 MG TABLET PO SCH ×2 (07:03→21:26)
[2017-03-09] MEDS: 0.9 % Sodium Chloride 1,000 ML IVC SCH (07:05)
[2017-03-09] MEDS ORDERED: Venlafaxine XR (24 HR) 75 MG CAP.ER.24H PO SCH (09:00)
[2017-03-09] MEDS ORDERED: (Abiraterone Acetate [Zytiga] 250 MG) PO SCH (09:00)
[2017-03-09] MEDS ORDERED: *HR* Glimepiride 2 MG TABLET PO SCH (09:00)
[2017-03-09] MEDS: Venlafaxine XR (24 HR) 37.5 MG CAP.ER.24H PO SCH (09:24)
[2017-03-09] MEDS: predniSONE 5 MG TABLET PO SCH (09:25)
[2017-03-09] MEDS: APIXABAN 5 MG TABLET PO SCH ×2 (09:25→21:26)
--- NOTE | 2017-03-09 11:42 | Internal Med History&Physical ---
Date of Encounter: 03/09/17 Time of Encounter: 10:55 Assessment and Plan (1) Urinary tract infection Current visit: No Status: Acute He was given Rocephin empirically in emergency room. Continue this and add Macrobid and lactobacillus. Qualifiers: Urinary tract infection type: acute cystitis Hematuria presence: without hematuria Qualified Code(s): N30.00 - Acute cystitis without hematuria (2) Pulmonary embolus Current visit: No Status: Acute Continue Eliquis Qualifiers: Pulmonary embolism type: other Chronicity: acute Acute cor pulmonale presence: without acute cor pulmonale Qualified Code(s): I26.99 - Other pulmonary embolism without acute cor pulmonale (3) Hypokalemia Current visit: No Status: Acute Will add potassium supplement (4) Anemia Current visit: No Status: Chronic He has required iron dextran infusions at his 2 previous [facility] hospitalizations this year. Will recheck anemia testing in a.m. Qualifiers: Anemia type: iron deficiency Iron deficiency anemia type: unspecified iron deficiency Qualified Code(s): D50.9 - Iron deficiency anemia, unspecified (5) Atrial fibrillation Current visit: Yes Status: Acute He has been prescribed amiodarone and diltiazem by his last ironer. He is having paroxysms of AF with RVR with rates up to 144 lasting several minutes. I will give him a dose of Lanoxin now. Increasing Cardizem and/or use of beta tracy may be needed also. Qualifiers: Atrial fibrillation type: paroxysmal Qualified Code(s): I48.0 - Paroxysmal atrial fibrillation (6) Hypophosphatemia Current visit: No Status: Acute Check phosphorus level in a.m. Internal Medicine - H&P: HPI Chief complaint: Falls, UTI Admitted From: Home Plans for Post Hospital Care: Home History of present illness: Mr. Nix is a 87 year old male who was brought to emergency room after he experienced 2 falls in the preceding 24 hours. One fall had occurred approximately 10 PM the evening of March 07 and the other fall approximately 5 AM on March 08. He had remained in bed since the second fall. His daughter found him in bed in the afternoon and called the squad. He was evaluated in emergency room and found to have UTI. He was admitted to [facility] floor for ongoing care needs. He has been hospitalized twice previously in 2017 with UTI. He has been doing straight caths at home because of urinary retention felt to be due to enlarged prostate despite previous TUR surgery. His urologist planned a repeat TUR procedure 02/17/2017 but preop evaluation showed atrial fibrillation with RVR and surgery was canceled. He was placed on suppressive regimen of Cipro after last discharge for frequent UTIs but after developing another UTI the suppressive regiment was not continued. He had prostate cancer diagnosed approximately 2009 and was treated medically with hormone therapy. He follows with a [place] urologist. There are no other known kidney or bladder disorders. Past Med Surg Social Fam HX - Past Medical History Medical history: cancer, other Psychiatric history: anxiety, depression - Past Surgical History Surgical History: cataract, hip replacement, orthopedic, other - Social History Smoking Status: Never smoker Smokeless Tobacco Status: No Alcohol use: none Drug use: none - Family History Father Adopted: No Living Status: Hx Family Cardiac Disorders: No Hx Family Respiratory Disorders: No Hx Family Cancer: Yes Hx Family GI Disorders: No Hx Family Endocrine Disorder: Yes Hx Family Neuromuscular Disorders: No Hx Family Neurologic Disorders: No Hx Family HEENT Disorders: No Hx Family Autoimmune Disorders: No Internal Medicine - H&P: Meds Glimepiride [Amaryl] 2 mg PO DAILY 10/16/15 [History] Venlafaxine HCl [Effexor Xr] 75 mg PO DAILY 10/16/15 [History] predniSONE [Prednisone] 5 mg PO DAILY 01/30/16 [History] Apixaban [Eliquis] 5 mg PO BID #60 tablet 02/01/16 [Rx] Abiraterone Acetate [Zytiga] 250 mg PO DAILY 03/08/17 [History] Amiodarone [Cordarone] 200 mg PO BID 03/08/17 [History] Diltiazem HCl [Diltiazem 24Hr Cd] 240 mg PO DAILY 03/08/17 [History] Lupron Depot [id number] 03/08/17 [History] 3 Allergy/AdvReac Type Severity Reaction Status Date / Time Sulfa (Sulfonamide Allergy See Verified 01/13/17 14:18 Antibiotics) Comments tamsulosin [From Flomax] AdvReac See Verified 01/13/17 14:18 Comments All Systems PM: A 10-system review of systems was performed and is negative for pertinent findings except as documented above in the HPI. Review of systems: Review of systems from the November 2016 [facility] hospitalization were reviewed and revised as below. Gen.: His weight has decreased from 92.669 kg on 10/04/2016 to 86.183 kg in emergency room. Cardiovascular: He has history of hypertension. He has had DVT/pulmonary embolism within the past year and is now on Eliquis. He has not had known SD or heart failure. He has paroxysmal atrial fibrillation and was recently placed on amiodarone. Diltiazem was also given for rate control and blood pressure. He reports his diltiazem dose was increased yesterday to 240 mg per phone instruction by his last ironer office staff. Respiratory: He is a lifelong nonsmoker. He was prescribed oxygen for nighttime use but this was recently discontinued. The exact diagnosis is not known by the daughter. GI: He had pancreatitis in the past which was attributed to an offending medication (name unknown). He has not had recurrence. He has not had other disorders of his liver or gallbladder. : As per history of present illness Neurologic: There is no known large distribution strokes or seizures Endocrine: He was diagnosed with DM 2 approximately 2011. 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 He has history of anemia with iron deficiency and was given iron dextran infusion during the September 2016 hospitalization. He had prostate cancer as per above. Psychiatric: He has depression but no significant anxiety other mental health issues Musk skeletal: He has DJD but no known gout or other bone joint or muscle disorders. - Constitutional Vitals: Temp Pulse Resp BP Pulse Ox 98.1 F 68 16 126/66 93 03/09/17 06:27 03/09/17 06:27 03/09/17 06:27 03/09/17 06:27 03/09/17 06:27 Exam: Gen.: He is a well-developed well-nourished male resting comfortably in bed who appears in no acute distress at present time HEENT: Head is atraumatic and normocephalic. Eyes: EOMI. There is no scleral icterus. Mouth: Mucosa is moist. Neck: Supple and nontender. There is no thyromegaly or adenopathy noted. Heart: Regular without murmurs gallops or ectopics Lungs: No wheezes or crackles are heard. Abdomen: Soft and nontender. No masses or guarding are noted. Extremities: There is no cyanosis edema or clubbing noted. Dorsalis pedis and posterior tibial pulses are trace palpable bilaterally. His feet are warm to touch. He has mild DJD changes of his hands. Neurologic: Mental status: He is talkative and a good historian. Cranial nerves : Smile is symmetric. Forehead wrinkles bilaterally. Tongue protrudes midline. EOMI. Motor: There is no pronator drift. Cerebellar: Finger to nose is intact bilaterally. Skin: Warm and dry Internal Med - H&P Results - Labs CBC & Chem 7: 03/08/17 14:54 03/08/17 14:54 Labs: Cardiac Enzymes 03/08/17 03/09/17 Range/Units 22:40 04:16 Troponin I 0.03 0.03 (0-0.03) ng/mL - VTE Reasons for not Prescribing Prophylaxis: Not indicated-Anticoagulated or INR therapeutic
[2017-03-09] MEDS ORDERED: *HR* Digoxin 0.5 MG/2 ML AMPUL IVP ONE ×2 (11:58→22:19)
[2017-03-09] MEDS ORDERED: cefTRIAXone 1,000 MG in Water for inj. (sterile) 10 ML IVP SCH (16:30)
[2017-03-09] MEDS: Nitrofurantoin (BID) 100 MG CAPSULE PO SCH (17:16)
--- NOTE | 2017-03-09 18:03 | Electrocardiograph Report ---
[address] [address] Test Date: 2017-03-08 Pat Name: Francis Nix Department: [id number] Room: [facility] Gender: M Publicity Agent: [id number] : 1930 Requested By: Harsha Clancy Order Number: [id number] Reading MD: Jones Benavides MD Measurements Intervals [place] Rate: 66 P: 42 NH: 197 QRS: 21 QRSD: 162 T: 50 QT: 481 QTc: 495 Interpretive Statements SINUS RHYTHM LEFT ATRIAL ENLARGEMENT RIGHT BUNDLE BRANCH BLOCK Electronically Signed On 03-09-2017 18:02:16 EST by Jones Benavides MD
[2017-03-09] MEDS: Lactobacillus 1 EACH CAP.SPRINK PO SCH (21:26)
[2017-03-09] MEDS ORDERED: *HR* Propranolol 1 MG/ML VIAL IVP ONE (22:20)
[2017-03-10 05:49] LABS: BUN/Creatinine Ratio 14 (6-26); Blood Urea Nitrogen 11 mg/dL (8-26); Calcium 8.9 mg/dL (8.6-10.8); Carbon Dioxide 25 mEq/L (19-29); Chloride 107 mEq/L (98-109); Glucose 130 mg/dL (70-99); Magnesium 1.4 mg/dL (1.6-2.6); Osmolality,Calculated 295 (280-300); Potassium 3.4 mEq/L (3.5-4.5); Sodium 142 mEq/L (136-145); eGFR For African Americans > 60 (> 60); eGFR For Non-African Americans > 60 (> 60)
[2017-03-10] MEDS: (Abiraterone Acetate [Zytiga] 250 MG) PO SCH (06:00)
[2017-03-10 06:11] LABS: Thyroid Stimulating Hormone 2.497 mcIU/mL (0.350-4.840)
[2017-03-10 06:23] LABS: Basophils % 0.3 %; Eosinophils # 0.3 K/mcL (0.0-0.6); Eosinophils % 2.7 %; Hematocrit 30.4 % (37.5-50.1); Hemoglobin 10.1 g/dL (12.9-16.9); Immature Granulocytes % 0.7 % (0-4); Lymphocytes # 2.7 K/mcL (0.6-4.6); Lymphocytes % 29.3 %; Mean Corpuscular HGB Conc 33.2 g/dL (31.6-35.5); Mean Corpuscular Hemoglobin 32.9 pg (28.0-33.3); Mean Platelet Volume 10.2 fL (9.4-12.4); Monocytes # 0.9 K/mcL (0.0-1.3); Monocytes % 9.3 %; Neutrophils # 5.3 K/mcL (1.6-8.9); Platelet Count 128 K/mcL (140-400); Red Blood Count 3.07 M/mcL (4.19-5.50); Red Cell Distribution Width 13.5 % (11.5-14.5); Segmented Neutrophils % 57.7 %
[2017-03-10] MEDS: predniSONE 5 MG TABLET PO SCH (08:55)
[2017-03-10] MEDS: Lactobacillus 1 EACH CAP.SPRINK PO SCH ×2 (08:55→21:30)
[2017-03-10] MEDS: Diltiazem CD (24hr) 240 MG CAPSULE PO SCH (08:55)
[2017-03-10] MEDS: Venlafaxine XR (24 HR) 37.5 MG CAP.ER.24H PO SCH (08:55)
[2017-03-10] MEDS: Nitrofurantoin (BID) 100 MG CAPSULE PO SCH ×2 (08:55→16:31)
[2017-03-10] MEDS: APIXABAN 5 MG TABLET PO SCH ×2 (08:55→21:31)
[2017-03-10] MEDS: *HR* Amiodarone 200 MG TABLET PO SCH ×2 (08:55→21:31)
[2017-03-10] MEDS: *HR* Glimepiride 2 MG TABLET PO SCH (08:58)
[2017-03-10 09:06] LABS: Iron 75 mcg/dL (65-175)
--- NOTE | 2017-03-10 10:11 | Internal Med Progress Note ---
Date of Encounter: 03/10/17 Time of Encounter: 10:00 - Assessment and plan (1) Urinary tract infection Current Visit: No Status: Acute Assessment and plan: March 10. Preliminary culture report shows Escherichia coli. Continue Rocephin and Macrobid with lactobacillus. Anticipate discharge home tomorrow. Qualifiers: Urinary tract infection type: acute cystitis Hematuria presence: without hematuria Qualified Code(s): N30.00 - Acute cystitis without hematuria (2) Pulmonary embolus Current Visit: No Status: Acute Assessment and plan: March 10. Continue Eliquis Qualifiers: Pulmonary embolism type: other Chronicity: acute Acute cor pulmonale presence: without acute cor pulmonale Qualified Code(s): I26.99 - Other pulmonary embolism without acute cor pulmonale (3) Hypokalemia Current Visit: No Status: Acute Assessment and plan: March 10. Continue potassium supplement. Recheck labs in a.m. (4) Anemia Current Visit: No Status: Chronic Assessment and plan: March 10. Iron level was normal with the rest of iron profile pending. Qualifiers: Anemia type: iron deficiency Iron deficiency anemia type: unspecified iron deficiency Qualified Code(s): D50.9 - Iron deficiency anemia, unspecified (5) Atrial fibrillation Current Visit: Yes Status: Acute Assessment and plan: March 10. Continue amiodarone and diltiazem. I will add beta tracy and Lanoxin. Qualifiers: Atrial fibrillation type: paroxysmal Qualified Code(s): I48.0 - Paroxysmal atrial fibrillation (6) Hypophosphatemia Current Visit: No Status: Acute Assessment and plan: March 10. Resolved. (7) Hypomagnesemia Current Visit: Yes Status: Acute Assessment and plan: March 10. Magnesium level was low at 1.4. Order magnesium oxide supplement. - Subjective Interval history: March 10. He has no new complaints and feels better. - Constitutional Vitals: Temp Pulse Resp BP Pulse Ox 97.8 F 60 16 161/69 95 03/10/17 06:11 03/10/17 06:11 03/10/17 06:11 03/10/17 06:11 03/10/17 06:11 Exam: He is resting comfortably in bed reading a newspaper. His affect is bright and cheerful. Telemetry shows heart rate approximate 70/m with occasional PACs. He has had a few episodes of AF with RVR and has received IV Lanoxin and beta tracy. I reviewed his medications and lab results. Internal Medicine: Result - Labs CBC & Chem 7: 03/10/17 06:18 03/10/17 04:21 Labs: Short CBC 03/10/17 Range/Units 06:18 WBC 9.1 (4.3-11.1) K/mcL Hgb 10.1 L (12.9-16.9) g/dL Hct 30.4 L (37.5-50.1) % Plt Count 128 L (140-400) K/mcL Neutrophils # 5.3 (1.6-8.9) K/mcL BMP 03/10/17 04:21 Sodium 142 Potassium 3.4 L Chloride 107 Carbon Dioxide 25 BUN 11 Creatinine 0.76 Glucose 130 H Calcium 8.9 - ABG Interpretation ABG results: PT/INR, D-dimer PT 16.1 Seconds (9.4-12.1) H 03/08/17 14:54 - VTE Reasons for not Prescribing Prophylaxis: Not indicated-Anticoagulated or INR therapeutic Consult Discharge Plan - Plan Referrals: Ernesto Ceron MD [Primary Care Provider] - 1 week
[2017-03-10 12:00] LABS: Folate 13.1 ng/mL (7.0-31.4)
[2017-03-10 12:39] LABS: % Iron Saturation 37 % (20-55); Transferrin 145 mg/dL (174-364)
[2017-03-10 13:03] LABS: Ferritin 766 ng/ml (22-275)
[2017-03-10] MEDS: *HR* Digoxin 0.25 MG TABLET PO SCH (14:30)
[2017-03-10] MEDS: Magnesium Oxide 400 MG TABLET PO SCH ×2 (14:30→21:31)
[2017-03-10] MEDS ORDERED: cefTRIAXone 1,000 MG in Water for inj. (sterile) 10 ML IVP SCH (16:00)
[2017-03-10] MEDS: traMADol 50 MG TABLET PO PRN (16:37)
[2017-03-11 05:19] LABS: Basophils % 0.4 %; Eosinophils # 0.2 K/mcL (0.0-0.6); Eosinophils % 2.7 %; Hemoglobin 10.3 g/dL (12.9-16.9); Immature Granulocytes % 0.6 % (0-4); Lymphocytes # 3.5 K/mcL (0.6-4.6); Mean Corpuscular HGB Conc 33.2 g/dL (31.6-35.5); Mean Corpuscular Hemoglobin 32.8 pg (28.0-33.3); Mean Corpuscular Volume 98.7 fL (83.0-100.0); Mean Platelet Volume 11.6 fL (9.4-12.4); Monocytes # 0.6 K/mcL (0.0-1.3); Monocytes % 6.9 %; Platelet Count 162 K/mcL (140-400); Red Blood Count 3.14 M/mcL (4.19-5.50); Red Cell Distribution Width 13.6 % (11.5-14.5); Segmented Neutrophils % 47.4 %
[2017-03-11] MEDS ORDERED: *HR* Metoprolol 5 MG/5 ML VIAL IVP ONE (05:20)
[2017-03-11 05:37] LABS: BUN/Creatinine Ratio 13 (6-26); Blood Urea Nitrogen 9 mg/dL (8-26); Carbon Dioxide 26 mEq/L (19-29); Chloride 107 mEq/L (98-109); Glucose 88 mg/dL (70-99); Magnesium 1.5 mg/dL (1.6-2.6); Osmolality,Calculated 292 (280-300); Potassium 3.7 mEq/L (3.5-4.5); Sodium 142 mEq/L (136-145); eGFR For African Americans > 60 (> 60); eGFR For Non-African Americans > 60 (> 60)
[2017-03-11] MEDS: (Abiraterone Acetate [Zytiga] 250 MG) PO SCH (05:44)
[2017-03-11] MEDS ORDERED: Nitroglycerin 0.4 MG TAB.SUBL SL ONE (07:56)
[2017-03-11] MEDS ORDERED: Nitroglycerin 0.4 MG TAB.SUBL SL PRN (07:59)
[2017-03-11] MEDS: Diltiazem CD (24hr) 240 MG CAPSULE PO SCH (08:06)
[2017-03-11] MEDS: *HR* Digoxin 0.25 MG TABLET PO SCH (08:06)
[2017-03-11] MEDS: *HR* Amiodarone 200 MG TABLET PO SCH (08:06)
[2017-03-11] MEDS: *HR* Glimepiride 2 MG TABLET PO SCH (08:14)
[2017-03-11] MEDS: Magnesium Oxide 400 MG TABLET PO SCH (08:14)
[2017-03-11] MEDS: Venlafaxine XR (24 HR) 37.5 MG CAP.ER.24H PO SCH (08:14)
[2017-03-11] MEDS: Lactobacillus 1 EACH CAP.SPRINK PO SCH (08:14)
[2017-03-11] MEDS: APIXABAN 5 MG TABLET PO SCH (08:15)
[2017-03-11] MEDS: Nitrofurantoin (BID) 100 MG CAPSULE PO SCH (08:15)
[2017-03-11] MEDS: predniSONE 5 MG TABLET PO SCH (08:15)
[2017-03-11 10:53] VITALS: BP 156/67
--- NOTE | 2017-03-11 14:06 | Discharge Summary ---
Date of Encounter: 03/11/17 Time of Encounter: 13:45 - Discharge Diagnosis (1) Urinary tract infection Priority: Primary Status: Acute Qualifiers: Urinary tract infection type: acute cystitis Hematuria presence: without hematuria Qualified Code(s): N30.00 - Acute cystitis without hematuria (2) Pulmonary embolus Priority: Secondary Status: Acute Qualifiers: Pulmonary embolism type: other Chronicity: acute Acute cor pulmonale presence: without acute cor pulmonale Qualified Code(s): I26.99 - Other pulmonary embolism without acute cor pulmonale (3) Hypokalemia Priority: Secondary Status: Acute (4) Anemia Priority: Secondary Status: Chronic Qualifiers: Anemia type: iron deficiency Iron deficiency anemia type: unspecified iron deficiency Qualified Code(s): D50.9 - Iron deficiency anemia, unspecified (5) Atrial fibrillation Priority: Secondary Status: Acute Qualifiers: Atrial fibrillation type: paroxysmal Qualified Code(s): I48.0 - Paroxysmal atrial fibrillation (6) Hypophosphatemia Priority: Secondary Status: Resolved (7) Hypomagnesemia Priority: Secondary Status: Acute - Discharge Medications Prescriptions: Cefuroxime PO [Ceftin] 500 mg PO QWEEK #4 tablet Digoxin [Lanoxin] 0.25 mg PO DAILY #30 tablet Lactobacillus [Culturelle] 1 each PO BID #6 cap.sprink Magnesium Oxide [Mag-Ox] 400 mg PO BID #10 tablet Metoprolol XL (24 HR) Succ [Toprol XL] 50 mg PO DAILY #30 tab.er.24h Nitrofurantoin (BID) [Macrobid] 100 mg PO BIDWM #10 capsule Potassium Chloride 10 meq PO DAILY #30 tab.er.prt Home Medications: Glimepiride [Amaryl] 2 mg PO DAILY 10/16/15 [History] Venlafaxine HCl [Effexor Xr] 75 mg PO DAILY 10/16/15 [History] predniSONE [Prednisone] 5 mg PO DAILY 01/30/16 [History] Apixaban [Eliquis] 5 mg PO BID #60 tablet 02/01/16 [Rx] Abiraterone Acetate [Zytiga] 250 mg PO DAILY 03/08/17 [History] Amiodarone [Cordarone] 200 mg PO BID 03/08/17 [History] Diltiazem HCl [Diltiazem 24Hr Cd] 240 mg PO DAILY 03/08/17 [History] Lupron Depot [id number] 03/08/17 [History] Cefuroxime PO [Ceftin] 500 mg PO QWEEK #4 tablet 03/11/17 [Rx] Digoxin [Lanoxin] 0.25 mg PO DAILY #30 tablet 03/11/17 [Rx] Lactobacillus [Culturelle] 1 each PO BID #6 cap.sprink 03/11/17 [Rx] Magnesium Oxide [Mag-Ox] 400 mg PO BID #10 tablet 03/11/17 [Rx] Metoprolol XL (24 HR) Succ [Toprol XL] 50 mg PO DAILY #30 tab.er.24h 03/11/17 [ Rx] Nitrofurantoin (BID) [Macrobid] 100 mg PO BIDWM #10 capsule 03/11/17 [Rx] Potassium Chloride 10 meq PO DAILY #30 tab.er.prt 03/11/17 [Rx] Allergies/Adverse Reactions: 3 Allergy/AdvReac Type Severity Reaction Status Date / Time Sulfa (Sulfonamide Allergy See Verified 01/13/17 14:18 Antibiotics) Comments tamsulosin [From Flomax] AdvReac See Verified 01/13/17 14:18 Comments Procedures/tests Complete & Pending: Procedures Performed prior 72 hours Category Date Time Status ECG 12 lead ECG [ECG] Stat Y 03/11/17 07:52 Ordered Date of admission: 03/08/17 17:56 Primary care physician: Ernesto Ceron MD - Patient Status Disposition: Home, Self-Care Condition: Good Functional capacity at discharge: uses cane/walker Overall status at discharge: patient is progressing back to baseline - Discharge Instructions Follow Up With: Ernesto Ceron MD [Primary Care Provider] - 1 week - Diet and Activity Activity: resume usual activities as tolerated Diet: advance to your usual diet Hospital course: Mr. Nix is a 87 year old male who was brought to emergency room after he experienced 2 falls in the preceding 24 hours. One fall had occurred approximately 10 PM the evening of March 07 and the other fall approximately 5 AM on March 08. He had remained in bed since the second fall. His daughter found him in bed in the afternoon and called the squad. He was evaluated in emergency room and found to have UTI. He was admitted to MedSurg floor for ongoing care needs. Initial orders were written by the emergency room physician. I saw him on March 09 and performed a history and physical. He was started empirically on Rocephin in emergency room. I added Macrobid and lactobacillus. Urine culture returned showing Escherichia coli. He will continue with Macrobid and lactobacillus for 3 additional days after discharge. He will then start a UTI suppression regimen of Macrobid 1 pill every Monday and Ceftin 1 pill daily every . His PCP can monitor him for recurrence of UTI. He had numerous episodes of atrial fibrillation with RVR noted. He was started on Lanoxin and metoprolol in addition to continuation of Cardizem and amiodarone. The frequency and ventricular response speed decreased with use of this regimen. He will remain on Toprol-XL and Lanoxin at discharge with his other cardiac medications. Anemia testing showed iron 75, transferrin saturation 37%, transferrin 145, ferritin 766, B12 246, and folate 13.1. His hemoglobin was stable at 10.3 on the day of discharge. Magnesium level was low at 1.4 on March 10. He was started on magnesium supplementation and he will continue this for 5 days at discharge. He was started on supplemental potassium for hypokalemia and will continue potassium supplement at discharge. His PCP can monitor labs as needed. On March 11 he felt stable for discharge home. He will follow with his PCP Dr. Ceron within 1 week. He wished to have outpatient PT and OT at [facility]. - Time Spent with Patient Total time spent providing and/or coordinating discharge services: - Constitutional Vitals: Temp Pulse Resp BP Pulse Ox 98.6 F 69 18 156/67 98 03/11/17 10:03/11/17 10:00 03/11/17 10:00 03/11/17 10:00 03/11/17 10:00 - VTE Reasons for not Prescribing Prophylaxis: Not indicated-Anticoagulated or INR therapeutic
[2017-03-11] MEDS ORDERED: FLUARIX QUAD 2017-18 36MOS UP/PF 0.5 ML SYRINGE IM ONE (14:34)
--- NOTE | 2017-03-12 17:56 | Electrocardiograph Report ---
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
== END 2017-03-11 15:20 | disposition home or self-care (01) ==
LOC: INPPIK 14:30 → EMEROOPIK 14:30 → INPPIK 18:00
PROVIDERS: ADMIT Internal Medicine; ATTEND Internal Medicine